=== PATIENT | male | born 1960 | race Asian ===

== ENCOUNTER 2016-02-25 11:33 | Inpatient (IN) | payer OTHER ==
[~2016-02-25] VITALS: Ht 157.5 cm; Wt 42.5 kg
[~2016-02-25 11:33] MED LIST: 00186-0370-20 IH; ADVIL200 MG PO; DIFLUCAN 100MG100 MG PO; DULERA1 AR1 IH; FOSAMAX 70MG TA70 MG PO; LEVAQUIN 5500 MG/TA1 PO; MUCINEX 60600 MG/TA1 PO; MULTI VITAMINS1 TAB PO; NORCO 325 MG-51 TAB PO; OMNICEF 300MG300 MG PO; OXYGEN; PEN-VEE K500 MG PO; PREDNISONE 5MG5 MG PO; PREDNISONE10 MG PO; PULMICORT0.5 MG/2 M IH; RT ADVAIR 528 DISKUS IH; SINGULAIR 110 MG/TAB PO; VENTOLIN0.09 MG IH; ZYRTEC 10MG10 MG PO
[2016-02-25] MEDS ORDERED: 00186-0370-20 IH (11:41)
[2016-02-25] MEDS ORDERED: ZYRTEC 10MG10 MG PO (12:10)
[2016-02-25] MEDS ORDERED: SINGULAIR 110 MG/TAB PO (12:11)
[2016-02-25] MEDS ORDERED: PREDNISONE 5MG5 MG PO (12:11)
[2016-02-25] MEDS ORDERED: PULMICORT0.5 MG/2 M IH (12:11)
[2016-02-25] MEDS ORDERED: ADVIL200 MG PO (12:11)
[2016-02-25] MEDS ORDERED: MULTI VITAMINS1 TAB PO (12:13)
[2016-02-25] MEDS ORDERED: DULERA1 ARO IH (12:13)
[2016-02-25 12:16] LABS: ARTERIAL BLD GAS O2 SATURATION 97.9 % (92-100); ARTERIAL BLD GAS TCO2 CT 33.1; ARTERIAL BLOOD GAS BASE EXCESS 4.6 (-2-2); ARTERIAL BLOOD GAS HCO3 31.4 meq/L (22-26); ARTERIAL BLOOD GAS PHT 7.36 C (7.35-7.45); ARTERIAL BLOOD GAS PO2 118.5 mmHg (80-100); ARTERIAL BLOOD GAS PO2T 118.5 (80-100); ARTERIAL BLOOD GAS pH 7.36 (7.35-7.45); OXYHEMOGLOBIN 97.2 %
[2016-02-25 12:17] LABS: ATS? YES
[2016-02-25 12:30] LABS: BASO # 0.1 (0.0-0.2); BASO % 1.1 % (0.0-2.0); EOS # 1.4 (0.0-0.7); EOS % 14.2 % (0-4.0); GRAN # 5.6 (1.4-6.5); HEMATOCRIT 39.4 % (42.0-52.0); HEMOGLOBIN 12.9 g/dl (13.5-18.0); LYMPH # 1.6 (1.2-3.4); LYMPH % 16.8 % (20.0-51.0); MEAN CELL VOLUME 97 fl (80.0-100.0); MEAN CORPUSCULAR HEMOGLOBIN 32 pg (27.0-31.0); MEAN CORPUSCULAR HGB CONC 33 g/dl (33.0-37.0); MONO # 0.9 (0.1-0.6); MONO % 9.7 % (1.7-9.3); PLATELET COUNT 414 K/mm3 (130-400); RED BLOOD COUNT 4.05 M/mm3 (4.20-5.60); REDCELL DISTRIBUTION WIDTH-CV 13.8 % (11.5-14.5); WHITE BLOOD COUNT 9.6 K/mm3 (4.8-10.8)
[2016-02-25 12:37] LABS: ALBUMIN 3.8 gm/dL (3.5-5.0); BILIRUBIN,TOTAL 0.7 mg/dL (0.0-1.0); CALCIUM 9.8 mg/dL (8.4-10.2); CREATININE, serum 0.68 mg/dL (0.66-1.25); TOTAL PROTEIN 7.7 gm/dL (6.4-8.2)
[2016-02-25 14:41] VITALS: BP 99/68; PULSE 80; TEMP 97.9
[2016-02-25 14:42] VITALS: BP 101/66; PULSE 79; TEMP 97.9
[2016-02-25 17:04] LABS: INFLUENZA B NEGATIVE
[2016-02-25] MEDS ORDERED: NYSTATIN OR100 MU/ML PO (19:46)
[2016-02-25 20:10] VITALS: BP 101/66; PULSE 98; TEMP 98.3
[2016-02-25 23:34] VITALS: BP 94/58; PULSE 97; TEMP 98.7
[2016-02-26 02:51] VITALS: BP 94/57; PULSE 97; TEMP 98.4
[2016-02-26 06:36] LABS: BASO % 0.5 % (0.0-2.0); GRAN # 4.3 (1.4-6.5); GRAN % 75.3 % (42.2-75.2); LYMPH % 17.3 % (20.0-51.0); MEAN CELL VOLUME 99 fl (80.0-100.0); MEAN CORPUSCULAR HGB CONC 32 g/dl (33.0-37.0); MEAN PLATELET VOLUME 9.1 fl (7.4-10.4); MONO # 0.4 (0.1-0.6); MONO % 6.7 % (1.7-9.3); PLATELET COUNT 367 K/mm3 (130-400); RED BLOOD COUNT 3.54 M/mm3 (4.20-5.60); REDCELL DISTRIBUTION WIDTH-CV 13.7 % (11.5-14.5); WHITE BLOOD COUNT 5.7 K/mm3 (4.8-10.8)
[2016-02-26 06:38] LABS: HEMATOCRIT 34.9 % (42.0-52.0); HEMOGLOBIN 11.2 g/dl (13.5-18.0); MEAN CORPUSCULAR HEMOGLOBIN 32 pg (27.0-31.0)
[2016-02-26 07:59] VITALS: BP 91/59; PULSE 77; TEMP 98.3
[2016-02-26 11:16] VITALS: BP 99/65; PULSE 83; TEMP 98.3
[2016-02-26 15:48] VITALS: BP 111/64; PULSE 100; TEMP 98.4
[2016-02-26 19:37] VITALS: BP 108/65; PULSE 102; TEMP 98
[2016-02-27] VITALS (7 sets, daily range): BP systolic 106–128; BP diastolic 59–83; PULSE 80–98; TEMP 97.2–98.7
[2016-02-28 03:26] VITALS: BP 121/76; PULSE 83; TEMP 98.6
[2016-02-28 07:33] VITALS: BP 114/77; PULSE 90; TEMP 98.5
[2016-02-28 12:37] VITALS: BP 125/89; PULSE 88; TEMP 97.9
[2016-02-28 16:07] VITALS: BP 131/79; PULSE 98; TEMP 98.5
[2016-02-28 20:18] VITALS: BP 133/89; PULSE 106; TEMP 98.5
[2016-02-28 22:54] VITALS: BP 123/83; PULSE 101; TEMP 98.6
[2016-02-29 03:02] VITALS: BP 129/83; PULSE 95; TEMP 98
[2016-02-29 07:30] LABS: BASO # 0.1 (0.0-0.2); BASO % 0.8 % (0.0-2.0); EOS % 0.5 % (0-4.0); GRAN % 63.6 % (42.2-75.2); LYMPH # 1.9 (1.2-3.4); LYMPH % 24.6 % (20.0-51.0); MEAN CELL VOLUME 96 fl (80.0-100.0); MEAN CORPUSCULAR HGB CONC 33 g/dl (33.0-37.0); MEAN PLATELET VOLUME 9.3 fl (7.4-10.4); MONO # 0.8 (0.1-0.6); PLATELET COUNT 405 K/mm3 (130-400); RED BLOOD COUNT 3.53 M/mm3 (4.20-5.60); WHITE BLOOD COUNT 7.8 K/mm3 (4.8-10.8)
[2016-02-29 07:34] LABS: HEMOGLOBIN 11.1 g/dl (13.5-18.0); MEAN CORPUSCULAR HEMOGLOBIN 31 pg (27.0-31.0)
[2016-02-29 07:40] LABS: ADJUSTED CALCIUM 9.6 mg/dL (8.4-10.2); ALBUMIN 2.9 gm/dL (3.5-5.0); BILIRUBIN,TOTAL 0.2 mg/dL (0.0-1.0); CALCIUM 8.7 mg/dL (8.4-10.2); CREATININE, serum 0.55 mg/dL (0.66-1.25); POTASSIUM 3.6 mmol/L (3.4-5.0); TOTAL PROTEIN 5.9 gm/dL (6.4-8.2)
[2016-02-29 08:03] VITALS: BP 112/80; PULSE 51; TEMP 98.3
[2016-02-29 10:50] VITALS: BP 129/87; PULSE 102
[2016-02-29] MEDS ORDERED: ETHAMBUTOL HYD400 MG PO (11:06)
[2016-02-29] MEDS ORDERED: RIFADIN300 MG PO (11:06)
[2016-02-29] MEDS ORDERED: BIAXIN 500MG T500 MG PO (11:07)
[2016-02-29] MEDS ORDERED: PREDNISONE10 MG PO (11:09)
[2016-02-29 11:42] VITALS: BP 130/82; PULSE 97; TEMP 97.5
== END 2016-02-29 14:10 | disposition home or self-care (01) | DRG 163 ==
LOC: COL.ER 11:33 → MEDICAL 13:41
PROVIDERS: Emergency Medicine; Internal Medicine; Internal Medicine Pulmonary Disease; Nurse Practitioner Family
PROC: 0B9B8ZZ Drainage of Left Lower Lobe Bronchus, Via Natural or Artificial Opening Endoscopic (ICD-10-PCS; principal; 2016-02-25)
PROC: 0B968ZZ Drainage of Right Lower Lobe Bronchus, Via Natural or Artificial Opening Endoscopic (ICD-10-PCS; 2016-02-25)
DX: J44.1 Chronic obstructive pulmonary disease with (acute) exacerbation (principal); J18.9 Pneumonia, unspecified organism; A31.0 Pulmonary mycobacterial infection; J45.909 Unspecified asthma, uncomplicated; D72.1 Eosinophilia; Z87.891 Personal history of nicotine dependence; Z91.14 Patient's other noncompliance with medication regimen
CPT/HCPCS: 99222-AI; 99232-AI; 99239; J0696; J1650; J2704; J7030; J7512

== ENCOUNTER 2016-05-22 00:23 | Inpatient (IN) | payer OTHER ==
[2016-05-22] VITALS (739 sets, daily range): BP systolic 84–127; BP diastolic 60–87; PULSE 77–122; TEMP 97–99.2; O2SAT 92–100
[~2016-05-22] VITALS: Ht 154.9 cm; Wt 41.8 kg
[~2016-05-22 00:23] MED LIST changes: +BIAXIN 500MG T500 MG PO; +DULERA1 ARO IH; +ETHAMBUTOL HYD400 MG PO; +NYSTATIN OR100 MU/ML PO; +RIFADIN300 MG PO
[2016-05-22 00:59] LABS: BASO # 0.1 (0.0-0.2); BASO % 1.4 % (0.0-2.0); EOS # 1.4 (0.0-0.7); EOS % 15.1 % (0-4.0); GRAN # 5.1 (1.4-6.5); GRAN % 55.9 % (42.2-75.2); HEMATOCRIT 41.5 % (42.0-52.0); HEMOGLOBIN 13.5 g/dl (13.5-18.0); LYMPH # 1.6 (1.2-3.4); LYMPH % 17.4 % (20.0-51.0); MEAN CELL VOLUME 97 fl (80.0-100.0); MEAN CORPUSCULAR HEMOGLOBIN 32 pg (27.0-31.0); MEAN CORPUSCULAR HGB CONC 33 g/dl (33.0-37.0); MEAN PLATELET VOLUME 9.6 fl (7.4-10.4); MONO # 0.9 (0.1-0.6); PLATELET COUNT 291 K/mm3 (130-400); RED BLOOD COUNT 4.27 M/mm3 (4.20-5.60); REDCELL DISTRIBUTION WIDTH-CV 13.2 % (11.5-14.5); WHITE BLOOD COUNT 9.1 K/mm3 (4.8-10.8)
[2016-05-22 01:10] LABS: VENOUS BLOOD GAS BE 10.4 (-4-4); VENOUS BLOOD GAS SAO2 79.3 % (60-80); VENOUS BLOOD GAS SITE VENIPUNCTURE
[2016-05-22 01:15] LABS: ADJUSTED CALCIUM 9.4 mg/dL (8.4-10.2); ALANINE AMINOTRANSFERASE 25 U/L (21-72); ALKALINE PHOSPHATASE 104 U/L (50-136); ANION GAP 13 mmol/L (7-16); BILIRUBIN,TOTAL 0.6 mg/dL (0.0-1.0); BLOOD UREA NITROGEN 25 mg/dL (9-20); CALCIUM 9.4 mg/dL (8.4-10.2); CARBON DIOXIDE 34 mmol/L (22-30); CHLORIDE 95 mmol/L (98-107); CREATININE, serum 0.82 mg/dL (0.66-1.25); GLUCOSE 126 mg/dL (74-106); LIPASE 240 U/L (23-300); POTASSIUM 4.3 mmol/L (3.4-5.0); SODIUM 142 mmol/L (137-145); TOTAL PROTEIN 7.9 gm/dL (6.4-8.2)
[2016-05-22 01:16] LABS: INR 1.1 (0.8-3.0); PROTHROMBIN TIME 12.3 SECONDS (9.7-12.8)
[2016-05-22 01:27] LABS: B-TYPE NATRIURETIC PEPTIDE 64 pg/mL (0-125); TROPONIN-I < 0.012 ng/mL (0.000-0.034)
[2016-05-22] MEDS ORDERED: FOSAMAX 70MG TA70 MG PO (03:13)
[2016-05-22] MEDS ORDERED: SINGULAIR 110 MG/TAB PO (03:20)
[2016-05-22] MEDS ORDERED: ETHAMBUTOL HYD400 MG PO (03:21)
[2016-05-22] MEDS ORDERED: BIAXIN 500MG T500 MG PO (03:22)
[2016-05-22] MEDS ORDERED: RIFADIN300 MG PO (03:24)
[2016-05-22] MEDS ORDERED: TYLENOL 500MG500 MG PO (03:27)
[2016-05-22] MEDS ORDERED: PULMICORT0.5 MG/2 M IH (03:27)
[2016-05-22] MEDS ORDERED: PROAIR HFA0.09 MG/AC IH (03:28)
[2016-05-22 05:53] LABS: ARTERIAL BLD GAS O2 SATURATION 92.8 % (92-100); ARTERIAL BLD GAS TCO2 CT 35.8; ARTERIAL BLOOD GAS BASE EXCESS 4.1 (-2-2); ARTERIAL BLOOD GAS HCO3 33.5 meq/L (22-26); ARTERIAL BLOOD GAS PHT 7.26 C (7.35-7.45); ARTERIAL BLOOD GAS PO2 72.7 mmHg (80-100); ARTERIAL BLOOD GAS PO2T 72.7 (80-100); ARTERIAL BLOOD GAS pH 7.26 (7.35-7.45)
[2016-05-22 05:57] LABS: ALLEN TEST YES; ALLENS TEST RESULT PASS; ATS? YES
[2016-05-22 06:14] LABS: CALCIUM 8.9 mg/dL (8.4-10.2); CREATININE, serum 0.73 mg/dL (0.66-1.25); MAGNESIUM 2.5 mg/dL (1.6-2.3); POTASSIUM 4.2 mmol/L (3.4-5.0)
[2016-05-22 11:58] LABS: ARTERIAL BLD GAS O2 SATURATION 97.8 % (92-100); ARTERIAL BLD GAS TCO2 CT 32.9; ARTERIAL BLOOD GAS BASE EXCESS 4.6 (-2-2); ARTERIAL BLOOD GAS HCO3 31.2 meq/L (22-26); ARTERIAL BLOOD GAS PHT 7.37 C (7.35-7.45); ARTERIAL BLOOD GAS pH 7.37 (7.35-7.45); OXYHEMOGLOBIN 96.9 %
[2016-05-22 12:00] LABS: ABG VENTILATOR TIDAL VOLUME 450 mL; ALLEN TEST YES; ALLENS TEST RESULT PASS; ARTERIAL BLOOD GAS PO2 122.6 mmHg (80-100); ARTERIAL BLOOD GAS PO2T 122.6 (80-100); ATS? YES
[2016-05-22 20:45] LABS: INFLUENZA B NEGATIVE
[2016-05-23] VITALS (1335 sets, daily range): BP systolic 90–125; BP diastolic 65–95; PULSE 60–114; TEMP 97–98.2; O2SAT 67–100
[2016-05-23 04:23] LABS: ARTERIAL BLD GAS TCO2 CT 28.6; ARTERIAL BLOOD GAS BASE EXCESS 2.2 (-2-2); ARTERIAL BLOOD GAS HCO3 27.3 meq/L (22-26); ARTERIAL BLOOD GAS PO2 89.4 mmHg (80-100); ARTERIAL BLOOD GAS PO2T 89.4 (80-100); OXYHEMOGLOBIN 95.1 %
[2016-05-23 04:24] LABS: ALLEN TEST YES; ALLENS TEST RESULT PASS; ATS? YES
[2016-05-23 06:04] LABS: BASO # 0.1 (0.0-0.2); BASO % 0.6 % (0.0-2.0); EOS % 0.2 % (0-4.0); GRAN # 7.5 (1.4-6.5); GRAN % 81.1 % (42.2-75.2); LYMPH # 1.3 (1.2-3.4); LYMPH % 13.4 % (20.0-51.0); MEAN CELL VOLUME 98 fl (80.0-100.0); MEAN CORPUSCULAR HGB CONC 32 g/dl (33.0-37.0); MEAN PLATELET VOLUME 9.8 fl (7.4-10.4); MONO # 0.4 (0.1-0.6); MONO % 4.4 % (1.7-9.3); PLATELET COUNT 230 K/mm3 (130-400); RED BLOOD COUNT 3.65 M/mm3 (4.20-5.60); REDCELL DISTRIBUTION WIDTH-CV 13.3 % (11.5-14.5); WHITE BLOOD COUNT 9.3 K/mm3 (4.8-10.8)
[2016-05-23 06:06] LABS: HEMATOCRIT 35.8 % (42.0-52.0); HEMOGLOBIN 11.5 g/dl (13.5-18.0); MEAN CORPUSCULAR HEMOGLOBIN 32 pg (27.0-31.0)
[2016-05-23 06:15] LABS: ADJUSTED CALCIUM 8.8 mg/dL (8.4-10.2); BILIRUBIN,TOTAL 0.4 mg/dL (0.0-1.0); CREATININE, serum 0.67 mg/dL (0.66-1.25); MAGNESIUM 2.1 mg/dL (1.6-2.3); PHOSPHOROUS 2.7 mg/dL (2.5-4.5); POTASSIUM 3.7 mmol/L (3.4-5.0); TOTAL PROTEIN 6.3 gm/dL (6.4-8.2)
[2016-05-24] VITALS (1172 sets, daily range): BP systolic 97–124; BP diastolic 78–84; PULSE 74–94; TEMP 97–98.6; O2SAT 71–100
[2016-05-24 04:40] LABS: ARTERIAL BLD GAS O2 SATURATION 95.4 % (92-100); ARTERIAL BLD GAS TCO2 CT 31.2; ARTERIAL BLOOD GAS BASE EXCESS 3.7 (-2-2); ARTERIAL BLOOD GAS HCO3 29.6 meq/L (22-26); ARTERIAL BLOOD GAS PHT 7.39 C (7.35-7.45); ARTERIAL BLOOD GAS PO2 83.1 mmHg (80-100); ARTERIAL BLOOD GAS PO2T 83.1 (80-100); ARTERIAL BLOOD GAS pH 7.39 (7.35-7.45); OXYHEMOGLOBIN 94.6 %
[2016-05-24 04:42] LABS: ALLEN TEST YES; ALLENS TEST RESULT PASS; ATS? YES
[2016-05-24 05:39] LABS: ADJUSTED CALCIUM 8.5 mg/dL (8.4-10.2); ALBUMIN 2.3 gm/dL (3.5-5.0); BILIRUBIN,TOTAL 0.3 mg/dL (0.0-1.0); CALCIUM 7.1 mg/dL (8.4-10.2); CREATININE, serum 0.51 mg/dL (0.66-1.25); MAGNESIUM 1.8 mg/dL (1.6-2.3); PHOSPHOROUS 1.9 mg/dL (2.5-4.5); POTASSIUM 3.1 mmol/L (3.4-5.0)
[2016-05-24 05:44] LABS: BASO # 0.1 (0.0-0.2); BASO % 0.9 % (0.0-2.0); EOS # 0.2 (0.0-0.7); EOS % 2.3 % (0-4.0); GRAN # 5.3 (1.4-6.5); GRAN % 68.3 % (42.2-75.2); LYMPH # 1.6 (1.2-3.4); LYMPH % 20.9 % (20.0-51.0); MEAN CELL VOLUME 97 fl (80.0-100.0); MEAN CORPUSCULAR HGB CONC 33 g/dl (33.0-37.0); MEAN PLATELET VOLUME 10.1 fl (7.4-10.4); MONO # 0.6 (0.1-0.6); MONO % 7.3 % (1.7-9.3); PLATELET COUNT 183 K/mm3 (130-400); REDCELL DISTRIBUTION WIDTH-CV 13.4 % (11.5-14.5); WHITE BLOOD COUNT 7.7 K/mm3 (4.8-10.8)
[2016-05-24 06:10] LABS: HEMATOCRIT 29.9 % (42.0-52.0); HEMOGLOBIN 9.9 g/dl (13.5-18.0); MEAN CORPUSCULAR HEMOGLOBIN 32 pg (27.0-31.0)
[2016-05-25] VITALS (1058 sets, daily range): BP systolic 104–112; BP diastolic 67–82; PULSE 66–94; TEMP 97–99.3; O2SAT 87–100
[2016-05-25 05:03] LABS: ALLEN TEST YES; ALLENS TEST RESULT PASS; ARTERIAL BLD GAS O2 SATURATION 93.6 % (92-100); ARTERIAL BLD GAS TCO2 CT 32.6; ARTERIAL BLOOD GAS BASE EXCESS 6.1 (-2-2); ARTERIAL BLOOD GAS HCO3 31.1 meq/L (22-26); ARTERIAL BLOOD GAS PHT 7.44 C (7.35-7.45); ARTERIAL BLOOD GAS PO2 70.2 mmHg (80-100); ARTERIAL BLOOD GAS PO2T 70.2 (80-100); ARTERIAL BLOOD GAS pH 7.44 (7.35-7.45); ATS? YES; OXYHEMOGLOBIN 92.9 %
[2016-05-25 05:28] LABS: BASO # 0.1 (0.0-0.2); BASO % 0.8 % (0.0-2.0); EOS # 0.2 (0.0-0.7); EOS % 2.8 % (0-4.0); GRAN # 4.5 (1.4-6.5); GRAN % 59.2 % (42.2-75.2); LYMPH % 27.2 % (20.0-51.0); MEAN CELL VOLUME 94 fl (80.0-100.0); MEAN CORPUSCULAR HGB CONC 33 g/dl (33.0-37.0); MONO # 0.7 (0.1-0.6); MONO % 9.9 % (1.7-9.3); PLATELET COUNT 206 K/mm3 (130-400); RED BLOOD COUNT 3.53 M/mm3 (4.20-5.60); REDCELL DISTRIBUTION WIDTH-CV 13.5 % (11.5-14.5); WHITE BLOOD COUNT 7.5 K/mm3 (4.8-10.8)
[2016-05-25 05:30] LABS: HEMATOCRIT 33.3 % (42.0-52.0); HEMOGLOBIN 11.1 g/dl (13.5-18.0); MEAN CORPUSCULAR HEMOGLOBIN 31 pg (27.0-31.0)
[2016-05-25 05:35] LABS: ADJUSTED CALCIUM 9.1 mg/dL (8.4-10.2); ALBUMIN 2.7 gm/dL (3.5-5.0); BILIRUBIN,TOTAL 0.4 mg/dL (0.0-1.0); CALCIUM 8.1 mg/dL (8.4-10.2); CREATININE, serum 0.61 mg/dL (0.66-1.25); MAGNESIUM 2.3 mg/dL (1.6-2.3); PHOSPHOROUS 2.9 mg/dL (2.5-4.5); POTASSIUM 3.6 mmol/L (3.4-5.0); TOTAL PROTEIN 5.7 gm/dL (6.4-8.2)
[2016-05-25 15:59] LABS: ARTERIAL BLD GAS O2 SATURATION 96.4 % (92-100); ARTERIAL BLOOD GAS HCO3 30.6 meq/L (22-26); ARTERIAL BLOOD GAS PHT 7.46 C (7.35-7.45); ARTERIAL BLOOD GAS PO2 89.9 mmHg (80-100); ARTERIAL BLOOD GAS PO2T 89.9 (80-100); ARTERIAL BLOOD GAS pH 7.46 (7.35-7.45); OXYHEMOGLOBIN 95.4 %
[2016-05-25 16:00] LABS: ALLEN TEST YES; ALLENS TEST RESULT PASS; ATS? YES
[2016-05-26] VITALS (671 sets, daily range): BP systolic 101–120; BP diastolic 60–83; PULSE 84–100; TEMP 97.6–99.2; O2SAT 56–100
[2016-05-26 05:58] LABS: BASO % 0.6 % (0.0-2.0); EOS # 0.1 (0.0-0.7); EOS % 1.2 % (0-4.0); GRAN # 5.2 (1.4-6.5); GRAN % 78.6 % (42.2-75.2); LYMPH # 0.9 (1.2-3.4); LYMPH % 13.8 % (20.0-51.0); MEAN CELL VOLUME 93 fl (80.0-100.0); MEAN CORPUSCULAR HGB CONC 34 g/dl (33.0-37.0); MEAN PLATELET VOLUME 9.7 fl (7.4-10.4); MONO # 0.4 (0.1-0.6); MONO % 5.5 % (1.7-9.3); PLATELET COUNT 211 K/mm3 (130-400); REDCELL DISTRIBUTION WIDTH-CV 13.4 % (11.5-14.5); WHITE BLOOD COUNT 6.7 K/mm3 (4.8-10.8)
[2016-05-26 06:06] LABS: HEMATOCRIT 29.9 % (42.0-52.0); HEMOGLOBIN 10.2 g/dl (13.5-18.0); MEAN CORPUSCULAR HEMOGLOBIN 32 pg (27.0-31.0)
[2016-05-26 06:14] LABS: CALCIUM 8.6 mg/dL (8.4-10.2); CREATININE, serum 0.66 mg/dL (0.66-1.25); POTASSIUM 3.4 mmol/L (3.4-5.0)
[2016-05-27 00:05] VITALS: BP 140/88; PULSE 107; TEMP 98.3
[2016-05-27 04:29] VITALS: BP 117/75; PULSE 88; TEMP 98.9
[2016-05-27 08:00] VITALS: BP 118/78; PULSE 97; TEMP 97.8
[2016-05-27] MEDS ORDERED: ETHAMBUTOL HYD400 MG PO (12:02)
[2016-05-27] MEDS ORDERED: BIAXIN 500MG T500 MG PO (12:03)
[2016-05-27] MEDS ORDERED: RIFADIN300 MG PO (12:04)
[2016-05-27] MEDS ORDERED: PREDNISONE10 MG PO (12:07)
[2016-05-27 12:15] VITALS: BP 130/80; PULSE 93; TEMP 98.2
== END 2016-05-27 17:28 | disposition home or self-care (01) | DRG 163 ==
LOC: COL.ER 00:23 → IMCU 01:40 → ICU 01:40 → MEDICAL 05-26 16:30
PROVIDERS: Emergency Medicine; Internal Medicine; Internal Medicine Pulmonary Disease
PROC: 0BH17EZ Insertion of Endotracheal Airway into Trachea, Via Natural or Artificial Opening (ICD-10-PCS; principal; 2016-05-22)
PROC: 0B968ZZ Drainage of Right Lower Lobe Bronchus, Via Natural or Artificial Opening Endoscopic (ICD-10-PCS; 2016-05-22)
PROC: 0B9B8ZZ Drainage of Left Lower Lobe Bronchus, Via Natural or Artificial Opening Endoscopic (ICD-10-PCS; 2016-05-22)
PROC: 5A1945Z Respiratory Ventilation, 24-96 Consecutive Hours (ICD-10-PCS; 2016-05-22)
PROC: 0B968ZZ Drainage of Right Lower Lobe Bronchus, Via Natural or Artificial Opening Endoscopic (ICD-10-PCS; 2016-05-24)
PROC: 0B9B8ZZ Drainage of Left Lower Lobe Bronchus, Via Natural or Artificial Opening Endoscopic (ICD-10-PCS; 2016-05-24)
DX: J96.02 Acute respiratory failure with hypercapnia (principal); E43 Unspecified severe protein-calorie malnutrition; J44.1 Chronic obstructive pulmonary disease with (acute) exacerbation; J45.901 Unspecified asthma with (acute) exacerbation; Z68.1 Body mass index [BMI] 19.9 or less, adult; Z87.891 Personal history of nicotine dependence; E87.6 Hypokalemia; E83.39 Other disorders of phosphorus metabolism
CPT/HCPCS: 99223-AI; 99232-AI; 99233-AI; 99239; A4315; C1751; J0330; J0610; J1644; J1650; J2250; J2543; J2704; J2920; J2930; J3010; J3370; J3475; J3480; J7030; J7040; J7050

== ENCOUNTER 2016-08-18 15:07 | Emergency (ER) | payer OTHER ==
[~2016-08-18] VITALS: Ht 154.9 cm; Wt 54.5 kg
[~2016-08-18 15:07] MED LIST changes: +PROAIR HFA0.09 MG/AC IH; +TYLENOL 500MG500 MG PO
[2016-08-18 15:12] VITALS: TEMP 98.1
[2016-08-18] MEDS ORDERED: 00186-0370-20 IH (15:58)
[2016-08-18 16:08] LABS: VENOUS BLOOD GAS BE 2.7 (-4-4)
[2016-08-18 16:09] LABS: VENOUS BLOOD GAS SITE VENIPUNCTURE
[2016-08-18 16:20] LABS: BASO # 0.1 (0.0-0.2); BASO % 1.4 % (0.0-2.0); EOS # 1.3 (0.0-0.7); EOS % 14.9 % (0-4.0); GRAN # 4.5 (1.4-6.5); GRAN % 53.4 % (42.2-75.2); HEMATOCRIT 45.4 % (42.0-52.0); HEMOGLOBIN 15.5 g/dl (13.5-18.0); LYMPH # 1.6 (1.2-3.4); LYMPH % 19.1 % (20.0-51.0); MEAN CELL VOLUME 99 fl (80.0-100.0); MEAN CORPUSCULAR HEMOGLOBIN 34 pg (27.0-31.0); MEAN CORPUSCULAR HGB CONC 34 g/dl (33.0-37.0); MEAN PLATELET VOLUME 9.5 fl (7.4-10.4); MONO # 0.9 (0.1-0.6); PLATELET COUNT 282 K/mm3 (130-400); REDCELL DISTRIBUTION WIDTH-CV 13.1 % (11.5-14.5); WHITE BLOOD COUNT 8.4 K/mm3 (4.8-10.8)
[2016-08-18 16:38] LABS: ANION GAP 10 mmol/L (7-16); BLOOD UREA NITROGEN 22 mg/dL (9-20); CALCIUM 9.2 mg/dL (8.4-10.2); CARBON DIOXIDE 28 mmol/L (22-30); CHLORIDE 103 mmol/L (98-107); CREATININE, serum 0.88 mg/dL (0.66-1.25); GLUCOSE 62 mg/dL (74-106); POTASSIUM 4.1 mmol/L (3.4-5.0); SODIUM 140 mmol/L (137-145)
[2016-08-18 16:44] LABS: HYALINE CAST >12 /lpf; PH 5 (5-8); SQUAMOUS EPITHELIAL None Seen /hpf; URINE APPEARANCE Clear; URINE BACTERIA None Seen /hpf; URINE BILIRUBIN Negative (NEGATIVE); URINE BLOOD Negative (NEGATIVE); URINE COLOR Amber; URINE GLUCOSE Negative (NEGATIVE); URINE KETONE Negative (NEGATIVE); URINE RBC 0-2 /hpf; URINE UROBILINOGEN Negative (NEGATIVE); URINE WBC 0-2 /hpf
[2016-08-18 16:50] LABS: B-TYPE NATRIURETIC PEPTIDE 57 pg/mL (0-125); TROPONIN-I < 0.012 ng/mL (0.000-0.034)
[2016-08-18] MEDS ORDERED: ATROVENT INHALE14 GM IH (17:08)
[2016-08-18] MEDS ORDERED: PREDNISONE20 MG PO (17:08)
[2016-08-18] MEDS ORDERED: LEVAQUIN 750MG750 M1 PO (17:09)
[2016-08-18 17:21] VITALS: BP 115/81; PULSE 96
== END 2016-08-18 17:30 | disposition home or self-care (01) ==
LOC: COL.ER 15:07
PROVIDERS: Emergency Medicine
DX: J44.0 Chronic obstructive pulmonary disease with (acute) lower respiratory infection (principal); J20.9 Acute bronchitis, unspecified; J44.1 Chronic obstructive pulmonary disease with (acute) exacerbation; Z87.891 Personal history of nicotine dependence; Z99.81 Dependence on supplemental oxygen
CPT/HCPCS: J2930; J7030

== ENCOUNTER 2017-01-20 16:17 | Emergency (ER) | payer OTHER ==
[~2017-01-20] VITALS: Ht 134.6 cm; Wt 44.5 kg
[~2017-01-20 16:17] MED LIST changes: +ATROVENT INHALE14 GM IH; +LEVAQUIN 750MG750 M1 PO; +PREDNISONE20 MG PO
[2017-01-20 16:27] VITALS: TEMP 98.7
[2017-01-20 16:58] LABS: BASO # 0.1 (0.0-0.2); BASO % 1.4 % (0.0-2.0); EOS # 0.7 (0.0-0.7); EOS % 10.5 % (0-4.0); GRAN # 3.4 (1.4-6.5); GRAN % 52.8 % (42.2-75.2); HEMATOCRIT 42.9 % (42.0-52.0); HEMOGLOBIN 14.7 g/dl (13.5-18.0); LYMPH # 1.7 (1.2-3.4); LYMPH % 25.6 % (20.0-51.0); MEAN CELL VOLUME 98 fl (80.0-100.0); MEAN CORPUSCULAR HEMOGLOBIN 33 pg (27.0-31.0); MEAN CORPUSCULAR HGB CONC 34 g/dl (33.0-37.0); MEAN PLATELET VOLUME 9.4 fl (7.4-10.4); MONO # 0.6 (0.1-0.6); MONO % 9.5 % (1.7-9.3); PLATELET COUNT 265 K/mm3 (130-400); WHITE BLOOD COUNT 6.5 K/mm3 (4.8-10.8)
[2017-01-20] MEDS ORDERED: 00186-0370-20 IH (16:59)
[2017-01-20] MEDS ORDERED: REMERON 15M15 MG/TA1 PO (16:59)
[2017-01-20] MEDS ORDERED: BREO IH (16:59)
[2017-01-20] MEDS ORDERED: SPIRIVA RE2.5 MCG/Ac IH (16:59)
[2017-01-20 17:02] LABS: PROTHROMBIN TIME 11.4 SECONDS (9.7-12.8)
[2017-01-20 17:05] LABS: PARTIAL THROMBOPLASTIN TIME 38.5 SECONDS (26.0-37.0)
[2017-01-20 17:08] LABS: ADJUSTED CALCIUM 9.2 mg/dL (8.4-10.2); ALANINE AMINOTRANSFERASE 45 U/L (21-72); ALBUMIN 4.5 gm/dL (3.5-5.0); ALKALINE PHOSPHATASE 79 U/L (50-136); ANION GAP 7 mmol/L (7-16); BILIRUBIN,TOTAL 0.5 mg/dL (0.0-1.0); BLOOD UREA NITROGEN 19 mg/dL (9-20); CALCIUM 9.6 mg/dL (8.4-10.2); CARBON DIOXIDE 27 mmol/L (22-30); CHLORIDE 105 mmol/L (98-107); CREATININE, serum 0.75 mg/dL (0.66-1.25); GLUCOSE 103 mg/dL (74-106); POTASSIUM 4.3 mmol/L (3.4-5.0); SODIUM 139 mmol/L (137-145); TOTAL PROTEIN 7.7 gm/dL (6.4-8.2)
[2017-01-20 17:19] LABS: B-TYPE NATRIURETIC PEPTIDE 63 pg/mL (0-125); TROPONIN-I < 0.012 ng/mL (0.000-0.034)
[2017-01-20] MEDS ORDERED: PREDNISONE20 MG PO (18:58)
[2017-01-20] MEDS ORDERED: ZITHROMAX500 M2 PO (18:58)
[2017-01-20 19:20] VITALS: BP 138/97; PULSE 100
== END 2017-01-20 19:21 | disposition home or self-care (01) ==
LOC: COL.ER 16:17
PROVIDERS: Emergency Medicine
DX: J45.901 Unspecified asthma with (acute) exacerbation (principal); J44.9 Chronic obstructive pulmonary disease, unspecified; Z87.891 Personal history of nicotine dependence
CPT/HCPCS: J0696; J2930; J3105; J3475; J7030

== ENCOUNTER 2017-02-16 18:51 | Emergency (ER) | payer OTHER ==
[~2017-02-16] VITALS: Ht 154.9 cm; Wt 44.1 kg
[~2017-02-16 18:51] MED LIST changes: +BREO IH; +REMERON 15M15 MG/TA1 PO; +SPIRIVA RE2.5 MCG/Ac IH; +ZITHROMAX500 M2 PO
[2017-02-16 18:58] VITALS: BP 122/69; TEMP 98.9
[2017-02-16 20:50] VITALS: PULSE 90
== END 2017-02-16 20:50 | disposition home or self-care (01) ==
LOC: COL.ER 18:51
DX: S90.121A Contusion of right lesser toe(s) without damage to nail, initial encounter (principal); J44.9 Chronic obstructive pulmonary disease, unspecified; Z87.891 Personal history of nicotine dependence; W22.8XXA Striking against or struck by other objects, initial encounter; Y92.009 Unspecified place in unspecified non-institutional (private) residence as the place of occurrence of the external cause

== ENCOUNTER 2017-03-01 17:39 | Inpatient (IN) | payer OTHER ==
[~2017-03-01] VITALS: Ht 149.9 cm; Wt 44.1 kg
[2017-03-01 18:18] LABS: BASO # 0.2 (0.0-0.2); BASO % 2.3 % (0.0-2.0); EOS # 0.9 (0.0-0.7); EOS % 11.7 % (0-4.0); GRAN # 3.7 (1.4-6.5); GRAN % 50.6 % (42.2-75.2); HEMOGLOBIN 14.4 g/dl (13.5-18.0); LYMPH # 1.8 (1.2-3.4); LYMPH % 24.7 % (20.0-51.0); MEAN CELL VOLUME 99 fl (80.0-100.0); MEAN CORPUSCULAR HEMOGLOBIN 34 pg (27.0-31.0); MEAN CORPUSCULAR HGB CONC 34 g/dl (33.0-37.0); MEAN PLATELET VOLUME 9.1 fl (7.4-10.4); MONO # 0.8 (0.1-0.6); MONO % 10.4 % (1.7-9.3); PLATELET COUNT 377 K/mm3 (130-400); RED BLOOD COUNT 4.24 M/mm3 (4.20-5.60); REDCELL DISTRIBUTION WIDTH-CV 12.8 % (11.5-14.5)
[2017-03-01 18:23] LABS: CALCIUM 9.8 mg/dL (8.4-10.2); CREATININE, serum 0.83 mg/dL (0.66-1.25); POTASSIUM 4.3 mmol/L (3.4-5.0)
[2017-03-01 20:40] LABS: ARTERIAL BLD GAS O2 SATURATION 91.9 % (92-100); ARTERIAL BLD GAS TCO2 CT 26.8; ARTERIAL BLOOD GAS BASE EXCESS 0.2 (-2-2); ARTERIAL BLOOD GAS HCO3 25.4 meq/L (22-26); ARTERIAL BLOOD GAS PCO2 43.5 mmHg (35-45); ARTERIAL BLOOD GAS PO2 61.1 mmHg (80-100); ARTERIAL BLOOD GAS pH 7.39 (7.35-7.45)
[2017-03-01 23:52] VITALS: BP 109/67; PULSE 108; TEMP 98.6
[2017-03-02 05:07] VITALS: BP 100/67; PULSE 101; TEMP 98.6
[2017-03-02 06:39] LABS: BASO # 0.1 (0.0-0.2); BASO % 0.8 % (0.0-2.0); EOS % 0.2 % (0-4.0); GRAN # 4.9 (1.4-6.5); GRAN % 81.5 % (42.2-75.2); HEMATOCRIT 40.9 % (42.0-52.0); HEMOGLOBIN 13.9 g/dl (13.5-18.0); LYMPH # 0.9 (1.2-3.4); LYMPH % 14.2 % (20.0-51.0); MEAN CELL VOLUME 99 fl (80.0-100.0); MEAN CORPUSCULAR HEMOGLOBIN 34 pg (27.0-31.0); MEAN CORPUSCULAR HGB CONC 34 g/dl (33.0-37.0); MEAN PLATELET VOLUME 9.2 fl (7.4-10.4); MONO # 0.2 (0.1-0.6); PLATELET COUNT 373 K/mm3 (130-400); RED BLOOD COUNT 4.12 M/mm3 (4.20-5.60)
[2017-03-02 06:56] LABS: CREATININE, serum 0.93 mg/dL (0.66-1.25); MAGNESIUM 2.2 mg/dL (1.6-2.3); PHOSPHOROUS 2.6 mg/dL (2.5-4.5); POTASSIUM 4.8 mmol/L (3.4-5.0)
[2017-03-02 09:03] VITALS: BP 109/70; PULSE 103; TEMP 98.5
[2017-03-02 12:37] VITALS: BP 120/72; PULSE 112; TEMP 98
[2017-03-02] MEDS ORDERED: BIAXIN 500MG T500 MG PO (15:41)
[2017-03-02 16:31] VITALS: BP 105/78; PULSE 113; TEMP 98.3
[2017-03-02 19:17] VITALS: BP 117/74; PULSE 99; TEMP 98.9
[2017-03-02 23:16] VITALS: BP 104/69; PULSE 105; TEMP 98.3
[2017-03-03 05:31] VITALS: BP 102/68; PULSE 94; TEMP 98.1
[2017-03-03 07:28] LABS: BASO % 0.5 % (0.0-2.0); EOS % 0.2 % (0-4.0); GRAN # 7.2 (1.4-6.5); GRAN % 87.2 % (42.2-75.2); HEMATOCRIT 41.1 % (42.0-52.0); HEMOGLOBIN 13.7 g/dl (13.5-18.0); LYMPH # 0.8 (1.2-3.4); LYMPH % 9.1 % (20.0-51.0); MEAN CELL VOLUME 100 fl (80.0-100.0); MEAN CORPUSCULAR HEMOGLOBIN 33 pg (27.0-31.0); MEAN CORPUSCULAR HGB CONC 33 g/dl (33.0-37.0); MEAN PLATELET VOLUME 9.3 fl (7.4-10.4); MONO # 0.2 (0.1-0.6); MONO % 2.6 % (1.7-9.3); PLATELET COUNT 348 K/mm3 (130-400); RED BLOOD COUNT 4.11 M/mm3 (4.20-5.60); REDCELL DISTRIBUTION WIDTH-CV 13.1 % (11.5-14.5)
[2017-03-03 07:47] LABS: CALCIUM 9.8 mg/dL (8.4-10.2); CREATININE, serum 0.85 mg/dL (0.66-1.25); POTASSIUM 4.7 mmol/L (3.4-5.0)
[2017-03-03 08:50] VITALS: BP 124/75; PULSE 108; TEMP 97.8
[2017-03-03] MEDS ORDERED: PREDNISONE20 MG PO (12:14)
[2017-03-03] MEDS ORDERED: LEVAQUIN 5500 MG/TA1 PO (12:15)
[2017-03-03 12:29] VITALS: BP 117/72; PULSE 106; TEMP 98.6
== END 2017-03-03 15:26 | disposition home or self-care (01) | DRG 190 ==
LOC: COL.ER 17:39 → MEDICAL 20:13
PROVIDERS: Emergency Medicine; Internal Medicine; Physician Assistant
DX: J44.1 Chronic obstructive pulmonary disease with (acute) exacerbation (principal); J96.21 Acute and chronic respiratory failure with hypoxia; R65.11 Systemic inflammatory response syndrome (SIRS) of non-infectious origin with acute organ dysfunction; E43 Unspecified severe protein-calorie malnutrition; R64 Cachexia; Z68.1 Body mass index [BMI] 19.9 or less, adult; Z87.820 Personal history of traumatic brain injury; Z87.891 Personal history of nicotine dependence
CPT/HCPCS: 99232-AI; 99239; G0378; J1956; J2920; J2930

== ENCOUNTER 2017-03-31 15:44 | Inpatient (IN) | payer OTHER ==
[~2017-03-31] VITALS: Ht 154.9 cm; Wt 44.5 kg
[2017-03-31] VITALS (188 sets, daily range): BP systolic 127; BP diastolic 91; PULSE 88–111; TEMP 98; O2SAT 97–100
[2017-03-31 16:19] LABS: BASO # 0.1 (0.0-0.2); BASO % 1.3 % (0.0-2.0); EOS # 0.3 (0.0-0.7); EOS % 3.8 % (0-4.0); GRAN # 5.4 (1.4-6.5); GRAN % 62.8 % (42.2-75.2); HEMATOCRIT 44.1 % (42.0-52.0); HEMOGLOBIN 14.9 g/dl (13.5-18.0); LYMPH # 1.9 (1.2-3.4); LYMPH % 21.5 % (20.0-51.0); MEAN CELL VOLUME 101 fl (80.0-100.0); MEAN CORPUSCULAR HEMOGLOBIN 34 pg (27.0-31.0); MEAN CORPUSCULAR HGB CONC 34 g/dl (33.0-37.0); MEAN PLATELET VOLUME 9.9 fl (7.4-10.4); MONO # 0.9 (0.1-0.6); MONO % 10.5 % (1.7-9.3); PLATELET COUNT 348 K/mm3 (130-400); RED BLOOD COUNT 4.35 M/mm3 (4.20-5.60); REDCELL DISTRIBUTION WIDTH-CV 12.9 % (11.5-14.5)
[2017-03-31 16:22] LABS: ARTERIAL BLD GAS O2 SATURATION 95.3 % (92-100); ARTERIAL BLD GAS TCO2 CT 26.9; ARTERIAL BLOOD GAS BASE EXCESS -0.5 (-2-2); ARTERIAL BLOOD GAS HCO3 25.4 meq/L (22-26); ARTERIAL BLOOD GAS PCO2 46.4 mmHg (35-45); ARTERIAL BLOOD GAS PO2 78.6 mmHg (80-100); ARTERIAL BLOOD GAS pH 7.36 (7.35-7.45)
[2017-03-31 16:59] LABS: ALANINE AMINOTRANSFERASE 42 U/L (21-72); ALBUMIN 3.9 gm/dL (3.5-5.0); ALKALINE PHOSPHATASE 68 U/L (50-136); ANION GAP 3 mmol/L (7-16); AST,SGOT 30 U/L (15-37); BILIRUBIN,TOTAL 0.3 mg/dL (0.0-1.0); BLOOD UREA NITROGEN 16 mg/dL (9-20); CALCIUM 8.6 mg/dL (8.4-10.2); CARBON DIOXIDE 29 mmol/L (22-30); CHLORIDE 107 mmol/L (98-107); CREATININE, serum 0.71 mg/dL (0.66-1.25); GLUCOSE 110 mg/dL (74-106); POTASSIUM 4.3 mmol/L (3.4-5.0); SODIUM 139 mmol/L (137-145)
[2017-03-31 17:19] LABS: PROTHROMBIN TIME 11.3 SECONDS (9.7-12.8); TROPONIN-I < 0.012 ng/mL (0.000-0.034)
[2017-03-31 18:17] LABS: C-REACTIVE PROTEIN < 0.5 mg/dL (0.0-0.9)
[2017-04-01] VITALS (1270 sets, daily range): BP systolic 100–133; BP diastolic 72–96; PULSE 72–85; TEMP 98.4–98.9; O2SAT 84–100
[2017-04-01 02:45] LABS: ARTERIAL BLD GAS O2 SATURATION 94.2 % (92-100); ARTERIAL BLOOD GAS BASE EXCESS -0.9 (-2-2); ARTERIAL BLOOD GAS HCO3 24.5 meq/L (22-26); ARTERIAL BLOOD GAS PCO2 43.3 mmHg (35-45); ARTERIAL BLOOD GAS pH 7.37 (7.35-7.45)
[2017-04-01 04:59] LABS: ARTERIAL BLD GAS O2 SATURATION 97.3 % (92-100); ARTERIAL BLD GAS TCO2 CT 31.8; ARTERIAL BLOOD GAS BASE EXCESS 3.8 (-2-2); ARTERIAL BLOOD GAS HCO3 30.1 meq/L (22-26); ARTERIAL BLOOD GAS PCO2 53.1 mmHg (35-45); ARTERIAL BLOOD GAS pH 7.37 (7.35-7.45)
[2017-04-01 05:34] LABS: BASO % 0.3 % (0.0-2.0); GRAN # 5.8 (1.4-6.5); GRAN % 85.9 % (42.2-75.2); HEMATOCRIT 37.1 % (42.0-52.0); LYMPH # 0.6 (1.2-3.4); LYMPH % 9.3 % (20.0-51.0); MEAN CELL VOLUME 103 fl (80.0-100.0); MEAN CORPUSCULAR HEMOGLOBIN 34 pg (27.0-31.0); MEAN CORPUSCULAR HGB CONC 33 g/dl (33.0-37.0); MEAN PLATELET VOLUME 9.2 fl (7.4-10.4); MONO # 0.3 (0.1-0.6); MONO % 4.4 % (1.7-9.3); PLATELET COUNT 260 K/mm3 (130-400); REDCELL DISTRIBUTION WIDTH-CV 13.1 % (11.5-14.5)
[2017-04-01 05:35] LABS: HEMOGLOBIN 12.3 g/dl (13.5-18.0)
[2017-04-01 05:44] LABS: ALBUMIN 3.4 gm/dL (3.5-5.0); BILIRUBIN,TOTAL 0.2 mg/dL (0.0-1.0); CALCIUM 8.7 mg/dL (8.4-10.2); CREATININE, serum 0.64 mg/dL (0.66-1.25); POTASSIUM 4.4 mmol/L (3.4-5.0); TOTAL PROTEIN 6.3 gm/dL (6.4-8.2)
[2017-04-01 10:30] LABS: ARTERIAL BLD GAS O2 SATURATION 97.1 % (92-100); ARTERIAL BLD GAS TCO2 CT 30.7; ARTERIAL BLOOD GAS BASE EXCESS 2.5 (-2-2); ARTERIAL BLOOD GAS HCO3 29.1 meq/L (22-26); ARTERIAL BLOOD GAS PCO2 53.2 mmHg (35-45); ARTERIAL BLOOD GAS PO2 98.3 mmHg (80-100); ARTERIAL BLOOD GAS pH 7.36 (7.35-7.45)
[2017-04-02] VITALS (409 sets, daily range): BP systolic 102–128; BP diastolic 62–75; PULSE 70–114; TEMP 98.1–99.2; O2SAT 89–99
[2017-04-03 04:34] VITALS: BP 111/63; PULSE 85; TEMP 97.8
[2017-04-03 08:18] VITALS: BP 136/80; PULSE 103; TEMP 98.4
[2017-04-03 11:00] VITALS: BP 118/78; PULSE 100; TEMP 98.3
[2017-04-03 16:35] VITALS: BP 117/75; PULSE 110; TEMP 98
[2017-04-03 20:04] VITALS: BP 131/91; PULSE 110; TEMP 97.9
[2017-04-03 23:41] VITALS: BP 112/67; PULSE 93; TEMP 98
[2017-04-04 04:36] VITALS: BP 101/60; PULSE 83; TEMP 98.8
[2017-04-04 07:29] VITALS: BP 111/65; PULSE 79; TEMP 98
[2017-04-04 11:15] VITALS: BP 110/66; PULSE 99; TEMP 98.6
[2017-04-04 16:50] VITALS: BP 141/83; PULSE 109; TEMP 97.8
[2017-04-04 17:21] VITALS: PULSE 97
[2017-04-04 19:43] VITALS: BP 154/87; PULSE 96; TEMP 98.7
[2017-04-04 22:15] LABS: MYCOPLASMA IGM ANTIBODIES 1.31 (0.00-0.90)
[2017-04-05 00:32] VITALS: BP 123/82; PULSE 95; TEMP 98.7
[2017-04-05 03:25] VITALS: BP 129/80; PULSE 74; TEMP 98.4
[2017-04-05 08:31] VITALS: BP 111/77; PULSE 119; TEMP 98.4
[2017-04-05 11:25] VITALS: BP 111/58; PULSE 79; TEMP 98
[2017-04-05] MEDS ORDERED: PREDNISONE20 MG PO (13:15)
[2017-04-05] MEDS ORDERED: BIAXIN 500MG T500 MG PO (13:23)
[2017-04-05 15:43] VITALS: BP 123/66; PULSE 99; TEMP 98
[2017-04-06 10:36] LABS: .HISTOPLASMA ANTIGEN SERUM None Detected (())
[2017-04-07 15:42] LABS: COCCIDIOIDES AB IGG Negative (Negative); COCCIDIOIDES AB IGM Negative (Negative); COCCIDIOIDES CF Negative (Negative)
== END 2017-04-05 17:35 | disposition home or self-care (01) | DRG 189 ==
LOC: COL.ER 15:44 → MEDICAL 18:04 → ICU 19:41 → MEDICAL 20:15
PROVIDERS: Emergency Medicine; Family Medicine; Internal Medicine Critical Care Medicine; Internal Medicine Infectious Disease; Internal Medicine Pulmonary Disease; Nurse Practitioner Family
DX: J96.21 Acute and chronic respiratory failure with hypoxia (principal); E43 Unspecified severe protein-calorie malnutrition; R65.11 Systemic inflammatory response syndrome (SIRS) of non-infectious origin with acute organ dysfunction; J45.51 Severe persistent asthma with (acute) exacerbation; Z68.1 Body mass index [BMI] 19.9 or less, adult; A31.0 Pulmonary mycobacterial infection; J96.22 Acute and chronic respiratory failure with hypercapnia; J44.9 Chronic obstructive pulmonary disease, unspecified; Z87.891 Personal history of nicotine dependence; B97.89 Other viral agents as the cause of diseases classified elsewhere
CPT/HCPCS: 99223-AI; 99232-AI; 99233-AI; 99239; C9113; G8987-GO; G8988-GO; J0456; J0696; J1650; J2920; J2930; J3475; J7030; J7050; J7512

== ENCOUNTER 2017-06-07 20:00 | Inpatient (IN) | payer OTHER ==
[~2017-06-07] VITALS: Ht 154.9 cm; Wt 43.9 kg
[2017-06-07] VITALS (87 sets, daily range): BP systolic 133; BP diastolic 100; PULSE 127; TEMP 98.1; O2SAT 91–100
[2017-06-07 20:25] LABS: BASO # 0.1 (0.0-0.2); BASO % 1.4 % (0.0-2.0); EOS # 1.2 (0.0-0.7); EOS % 15.1 % (0-4.0); GRAN # 3.3 (1.4-6.5); GRAN % 42.2 % (42.2-75.2); HEMATOCRIT 45.9 % (42.0-52.0); HEMOGLOBIN 15.7 g/dl (13.5-18.0); LYMPH # 2.4 (1.2-3.4); LYMPH % 30.7 % (20.0-51.0); MEAN CELL VOLUME 99 fl (80.0-100.0); MEAN CORPUSCULAR HEMOGLOBIN 34 pg (27.0-31.0); MEAN CORPUSCULAR HGB CONC 34 g/dl (33.0-37.0); MEAN PLATELET VOLUME 9.3 fl (7.4-10.4); MONO # 0.8 (0.1-0.6); MONO % 10.3 % (1.7-9.3); PLATELET COUNT 294 K/mm3 (130-400); RED BLOOD COUNT 4.66 M/mm3 (4.20-5.60); REDCELL DISTRIBUTION WIDTH-CV 12.3 % (11.5-14.5)
[2017-06-07 20:30] LABS: PROTHROMBIN TIME 12.1 SECONDS (9.7-12.8)
[2017-06-07 20:32] LABS: ARTERIAL BLD GAS TCO2 CT 30.1; ARTERIAL BLOOD GAS BASE EXCESS 1.3 (-2-2); ARTERIAL BLOOD GAS HCO3 28.5 meq/L (22-26); ARTERIAL BLOOD GAS PCO2 54.7 mmHg (35-45); ARTERIAL BLOOD GAS pH 7.33 (7.35-7.45)
[2017-06-07 20:35] LABS: ALANINE AMINOTRANSFERASE 30 U/L (21-72); ALBUMIN 4.4 gm/dL (3.5-5.0); ALKALINE PHOSPHATASE 78 U/L (50-136); ANION GAP 11 mmol/L (7-16); AST,SGOT 29 U/L (15-37); BILIRUBIN,TOTAL 0.3 mg/dL (0.0-1.0); BLOOD UREA NITROGEN 20 mg/dL (9-20); CALCIUM 9.4 mg/dL (8.4-10.2); CARBON DIOXIDE 28 mmol/L (22-30); CHLORIDE 106 mmol/L (98-107); CREATININE, serum 0.86 mg/dL (0.66-1.25); GLUCOSE 111 mg/dL (74-106); LIPASE 189 U/L (23-300); POTASSIUM 4.2 mmol/L (3.4-5.0); SODIUM 145 mmol/L (137-145); TOTAL PROTEIN 8.7 gm/dL (6.4-8.2)
[2017-06-07 20:57] LABS: TROPONIN-I < 0.012 ng/mL (0.000-0.034)
[2017-06-07 21:57] LABS: ARTERIAL BLD GAS O2 SATURATION 92.7 % (92-100); ARTERIAL BLD GAS TCO2 CT 29.1; ARTERIAL BLOOD GAS HCO3 27.1 meq/L (22-26); ARTERIAL BLOOD GAS PCO2 64.9 mmHg (35-45); ARTERIAL BLOOD GAS PO2 73.5 mmHg (80-100); ARTERIAL BLOOD GAS pH 7.24 (7.35-7.45)
[2017-06-07 23:36] LABS: ARTERIAL BLOOD GAS BASE EXCESS -4.4 (-2-2); ARTERIAL BLOOD GAS HCO3 24.5 meq/L (22-26); ARTERIAL BLOOD GAS PCO2 61.1 mmHg (35-45); ARTERIAL BLOOD GAS PO2 82.1 mmHg (80-100); ARTERIAL BLOOD GAS pH 7.22 (7.35-7.45)
[2017-06-07 23:37] LABS: ARTERIAL BLD GAS O2 SATURATION 94.2 % (92-100)
[2017-06-08] VITALS (655 sets, daily range): BP systolic 82–97; BP diastolic 57–69; PULSE 65–94; TEMP 98.4–100.7; O2SAT 77–100
[2017-06-08 05:30] LABS: BASO % 0.5 % (0.0-2.0); GRAN # 5.6 (1.4-6.5); GRAN % 85.2 % (42.2-75.2); LYMPH # 0.7 (1.2-3.4); LYMPH % 10.9 % (20.0-51.0); MEAN CELL VOLUME 103 fl (80.0-100.0); MEAN CORPUSCULAR HGB CONC 33 g/dl (33.0-37.0); MEAN PLATELET VOLUME 9.8 fl (7.4-10.4); MONO # 0.2 (0.1-0.6); MONO % 3.2 % (1.7-9.3); PLATELET COUNT 209 K/mm3 (130-400); RED BLOOD COUNT 3.52 M/mm3 (4.20-5.60); REDCELL DISTRIBUTION WIDTH-CV 12.6 % (11.5-14.5)
[2017-06-08 05:30] LABS: ARTERIAL BLD GAS TCO2 CT 25.1; ARTERIAL BLOOD GAS BASE EXCESS -2.9 (-2-2); ARTERIAL BLOOD GAS HCO3 23.6 meq/L (22-26); ARTERIAL BLOOD GAS PCO2 47.7 mmHg (35-45); ARTERIAL BLOOD GAS PO2 64.7 mmHg (80-100); ARTERIAL BLOOD GAS pH 7.31 (7.35-7.45)
[2017-06-08 05:32] LABS: HEMATOCRIT 36.1 % (42.0-52.0); MEAN CORPUSCULAR HEMOGLOBIN 34 pg (27.0-31.0)
[2017-06-08 05:41] LABS: ALANINE AMINOTRANSFERASE 30 U/L (21-72); ALBUMIN 2.9 gm/dL (3.5-5.0); ALKALINE PHOSPHATASE 59 U/L (50-136); ANION GAP 10 mmol/L (7-16); AST,SGOT 20 U/L (15-37); BILIRUBIN,TOTAL < 0.1 mg/dL (0.0-1.0); BLOOD UREA NITROGEN 20 mg/dL (9-20); CALCIUM 7.4 mg/dL (8.4-10.2); CARBON DIOXIDE 23 mmol/L (22-30); CHLORIDE 111 mmol/L (98-107); CREATININE, serum 0.78 mg/dL (0.66-1.25); GLUCOSE 126 mg/dL (74-106); MAGNESIUM 2.2 mg/dL (1.6-2.3); POTASSIUM 4.4 mmol/L (3.4-5.0); SODIUM 144 mmol/L (137-145); TOTAL PROTEIN 5.8 gm/dL (6.4-8.2)
[2017-06-09] VITALS (953 sets, daily range): BP systolic 97–143; BP diastolic 60–84; PULSE 46–96; TEMP 98–99; O2SAT 78–100
[2017-06-09 05:20] LABS: ARTERIAL BLD GAS O2 SATURATION 95.9 % (92-100); ARTERIAL BLD GAS TCO2 CT 23.7; ARTERIAL BLOOD GAS BASE EXCESS -1.9 (-2-2); ARTERIAL BLOOD GAS HCO3 22.5 meq/L (22-26); ARTERIAL BLOOD GAS PCO2 37.2 mmHg (35-45); ARTERIAL BLOOD GAS PO2 82.7 mmHg (80-100)
[2017-06-09 05:49] LABS: BASO % 0.2 % (0.0-2.0); GRAN # 7.9 (1.4-6.5); LYMPH # 0.7 (1.2-3.4); LYMPH % 7.7 % (20.0-51.0); MEAN CELL VOLUME 101 fl (80.0-100.0); MEAN CORPUSCULAR HGB CONC 33 g/dl (33.0-37.0); MEAN PLATELET VOLUME 9.7 fl (7.4-10.4); MONO # 0.3 (0.1-0.6); MONO % 2.8 % (1.7-9.3); PLATELET COUNT 220 K/mm3 (130-400); RED BLOOD COUNT 3.51 M/mm3 (4.20-5.60); REDCELL DISTRIBUTION WIDTH-CV 12.4 % (11.5-14.5)
[2017-06-09 05:55] LABS: HEMATOCRIT 35.3 % (42.0-52.0); HEMOGLOBIN 11.8 g/dl (13.5-18.0); MEAN CORPUSCULAR HEMOGLOBIN 34 pg (27.0-31.0)
[2017-06-09 06:06] LABS: ALBUMIN 2.9 gm/dL (3.5-5.0); BILIRUBIN,TOTAL 0.2 mg/dL (0.0-1.0); CALCIUM 6.7 mg/dL (8.4-10.2); CREATININE, serum 0.66 mg/dL (0.66-1.25); MAGNESIUM 2.2 mg/dL (1.6-2.3); POTASSIUM 3.9 mmol/L (3.4-5.0); TOTAL PROTEIN 5.6 gm/dL (6.4-8.2)
[2017-06-10 04:07] VITALS: BP 104/65; PULSE 74; TEMP 98.3
[2017-06-10 07:25] LABS: BASO % 0.4 % (0.0-2.0); GRAN # 4.7 (1.4-6.5); GRAN % 82.6 % (42.2-75.2); LYMPH # 0.7 (1.2-3.4); LYMPH % 12.7 % (20.0-51.0); MEAN CELL VOLUME 99 fl (80.0-100.0); MEAN CORPUSCULAR HGB CONC 34 g/dl (33.0-37.0); MONO # 0.2 (0.1-0.6); MONO % 4.1 % (1.7-9.3); PLATELET COUNT 205 K/mm3 (130-400); RED BLOOD COUNT 3.43 M/mm3 (4.20-5.60); REDCELL DISTRIBUTION WIDTH-CV 12.1 % (11.5-14.5)
[2017-06-10 07:30] LABS: HEMATOCRIT 33.9 % (42.0-52.0); HEMOGLOBIN 11.5 g/dl (13.5-18.0); MEAN CORPUSCULAR HEMOGLOBIN 34 pg (27.0-31.0)
[2017-06-10 07:35] VITALS: BP 109/73; PULSE 70; TEMP 97.6
[2017-06-10 07:35] LABS: ALANINE AMINOTRANSFERASE 37 U/L (21-72); ALBUMIN 2.8 gm/dL (3.5-5.0); ALKALINE PHOSPHATASE 56 U/L (50-136); ANION GAP 8 mmol/L (7-16); AST,SGOT 26 U/L (15-37); BILIRUBIN,TOTAL < 0.1 mg/dL (0.0-1.0); BLOOD UREA NITROGEN 16 mg/dL (9-20); CALCIUM 7.9 mg/dL (8.4-10.2); CARBON DIOXIDE 28 mmol/L (22-30); CHLORIDE 109 mmol/L (98-107); CREATININE, serum 0.63 mg/dL (0.66-1.25); GLUCOSE 128 mg/dL (74-106); MAGNESIUM 2.3 mg/dL (1.6-2.3); POTASSIUM 3.6 mmol/L (3.4-5.0); SODIUM 145 mmol/L (137-145); TOTAL PROTEIN 5.6 gm/dL (6.4-8.2)
[2017-06-10 12:43] VITALS: BP 109/71; PULSE 84; TEMP 98.2
[2017-06-10 16:49] VITALS: BP 116/67; PULSE 86; TEMP 98.5
[2017-06-10 19:18] VITALS: BP 119/71; PULSE 86; TEMP 98.3
[2017-06-10 23:11] VITALS: BP 120/71; PULSE 75; TEMP 97.9
[2017-06-11 03:13] VITALS: BP 115/74; PULSE 77; TEMP 97.8
[2017-06-11 07:47] VITALS: BP 120/80; PULSE 68; TEMP 97.4
[2017-06-11 11:43] VITALS: BP 114/59; PULSE 84; TEMP 98.3
[2017-06-11 17:48] VITALS: BP 129/83; PULSE 89; TEMP 98.5
[2017-06-11 20:26] VITALS: BP 116/46; PULSE 88; TEMP 98.3
[2017-06-11 23:34] VITALS: BP 113/51; PULSE 66; TEMP 98.3
[2017-06-12 04:28] VITALS: BP 114/73; PULSE 74; TEMP 98.1
[2017-06-12 06:29] LABS: BASO # 0.1 (0.0-0.2); BASO % 0.6 % (0.0-2.0); EOS # 0.1 (0.0-0.7); EOS % 0.6 % (0-4.0); GRAN # 5.9 (1.4-6.5); GRAN % 60.7 % (42.2-75.2); HEMATOCRIT 38.3 % (42.0-52.0); HEMOGLOBIN 13.2 g/dl (13.5-18.0); LYMPH # 2.9 (1.2-3.4); LYMPH % 29.1 % (20.0-51.0); MEAN CELL VOLUME 97 fl (80.0-100.0); MEAN CORPUSCULAR HEMOGLOBIN 33 pg (27.0-31.0); MEAN CORPUSCULAR HGB CONC 35 g/dl (33.0-37.0); MEAN PLATELET VOLUME 9.8 fl (7.4-10.4); MONO # 0.9 (0.1-0.6); MONO % 8.7 % (1.7-9.3); PLATELET COUNT 253 K/mm3 (130-400); RED BLOOD COUNT 3.97 M/mm3 (4.20-5.60)
[2017-06-12 06:45] LABS: CALCIUM 8.7 mg/dL (8.4-10.2); CREATININE, serum 0.6 mg/dL (0.66-1.25); POTASSIUM 3.3 mmol/L (3.4-5.0)
[2017-06-12 07:38] VITALS: BP 106/77; PULSE 79; TEMP 97.8
[2017-06-12] MEDS ORDERED: PREDNISONE10 MG PO (08:52)
== END 2017-06-12 12:05 | disposition home or self-care (01) | DRG 208 ==
LOC: COL.ER 20:00 → ICU 21:07 → MEDICAL 06-09 18:03 → ICU 06-09 18:03 → MEDICAL 06-09 18:03
PROVIDERS: Emergency Medicine; Internal Medicine Pulmonary Disease; Nurse Practitioner Family
PROC: 0BH17EZ Insertion of Endotracheal Airway into Trachea, Via Natural or Artificial Opening (ICD-10-PCS; principal; 2017-06-07)
PROC: 5A1945Z Respiratory Ventilation, 24-96 Consecutive Hours (ICD-10-PCS; 2017-06-07)
DX: J96.22 Acute and chronic respiratory failure with hypercapnia (principal); J45.51 Severe persistent asthma with (acute) exacerbation; J44.1 Chronic obstructive pulmonary disease with (acute) exacerbation; E44.0 Moderate protein-calorie malnutrition; Z68.1 Body mass index [BMI] 19.9 or less, adult; E87.2 Acidosis; J96.21 Acute and chronic respiratory failure with hypoxia; S06.890S Other specified intracranial injury without loss of consciousness, sequela; V49.60XS Unspecified car occupant injured in collision with unspecified motor vehicles in traffic accident, sequela; Z87.891 Personal history of nicotine dependence; E87.6 Hypokalemia; R76.11 Nonspecific reaction to tuberculin skin test without active tuberculosis
CPT/HCPCS: 99222; 99223-AI; 99232-AI; 99239; A9284; C1751; J0330; J0456; J0696; J1644; J1650; J2060; J2704; J2920; J2930; J3010; J3475; J7030; J7050

== ENCOUNTER 2017-11-30 14:01 | Emergency (ER) | payer OTHER ==
[~2017-11-30] VITALS: Ht 152.4 cm; Wt 47.3 kg
[2017-11-30 14:05] VITALS: BP 109/85; TEMP 98.6
[2017-11-30 14:20] LABS: BASO # 0.1 (0.0-0.2); BASO % 1.4 % (0.0-2.0); EOS # 0.5 (0.0-0.7); EOS % 7.4 % (0-4.0); GRAN # 3.1 (1.4-6.5); HEMATOCRIT 42.7 % (42.0-52.0); HEMOGLOBIN 14.7 g/dl (13.5-18.0); LYMPH # 1.8 (1.2-3.4); LYMPH % 28.8 % (20.0-51.0); MEAN CELL VOLUME 97 fl (80.0-100.0); MEAN CORPUSCULAR HEMOGLOBIN 33 pg (27.0-31.0); MEAN CORPUSCULAR HGB CONC 34 g/dl (33.0-37.0); MEAN PLATELET VOLUME 9.2 fl (7.4-10.4); MONO # 0.8 (0.1-0.6); MONO % 12.2 % (1.7-9.3); PLATELET COUNT 293 K/mm3 (130-400); RED BLOOD COUNT 4.41 M/mm3 (4.20-5.60); REDCELL DISTRIBUTION WIDTH-CV 12.6 % (11.5-14.5)
[2017-11-30 14:53] LABS: ALANINE AMINOTRANSFERASE 40 U/L (21-72); ALBUMIN 3.9 gm/dL (3.5-5.0); ALKALINE PHOSPHATASE 64 U/L (50-136); ANION GAP 6 mmol/L (7-16); AST,SGOT 42 U/L (15-37); BILIRUBIN,TOTAL 0.4 mg/dL (0.0-1.0); BLOOD UREA NITROGEN 14 mg/dL (9-20); CARBON DIOXIDE 27 mmol/L (22-30); CHLORIDE 108 mmol/L (98-107); CREATININE, serum 0.76 mg/dL (0.66-1.25); GLUCOSE 94 mg/dL (74-106); LIPASE 139 U/L (23-300); POTASSIUM 4.2 mmol/L (3.4-5.0); SODIUM 141 mmol/L (137-145); TOTAL PROTEIN 7.1 gm/dL (6.4-8.2)
[2017-11-30 15:04] LABS: ARTERIAL BLD GAS O2 SATURATION 98.8 % (92-100); ARTERIAL BLD GAS TCO2 CT 21.7; ARTERIAL BLOOD GAS BASE EXCESS -4.6 (-2-2); ARTERIAL BLOOD GAS HCO3 20.5 meq/L (22-26); ARTERIAL BLOOD GAS PCO2 38.2 mmHg (35-45); ARTERIAL BLOOD GAS pH 7.35 (7.35-7.45)
[2017-11-30 15:05] LABS: ARTERIAL BLOOD GAS PO2 226.1 mmHg (80-100)
[2017-11-30 15:33] LABS: TROPONIN-I < 0.012 ng/mL (0.000-0.034)
[2017-11-30 18:30] VITALS: PULSE 78
== END 2017-11-30 18:30 | disposition short-term general hospital (02) ==
LOC: COL.ER 14:01
PROVIDERS: Emergency Medicine
DX: J44.1 Chronic obstructive pulmonary disease with (acute) exacerbation (principal)
CPT/HCPCS: J1956; J2930; J7030

== ENCOUNTER 2018-01-16 16:34 | Inpatient (IN) | payer OTHER ==
[~2018-01-16] VITALS: Ht 154.9 cm; Wt 43.9 kg
[2018-01-16] VITALS (183 sets, daily range): BP systolic 111–123; BP diastolic 75–83; PULSE 106–107; TEMP 98.1–99.4; O2SAT 86–100
[2018-01-16 16:55] LABS: BASO # 0.1 (0.0-0.2); BASO % 1.5 % (0.0-2.0); EOS # 1.2 (0.0-0.7); EOS % 12.9 % (0-4.0); GRAN % 52.4 % (42.2-75.2); HEMATOCRIT 45.9 % (42.0-52.0); HEMOGLOBIN 15.4 g/dl (13.5-18.0); LYMPH # 2.3 (1.2-3.4); LYMPH % 24.6 % (20.0-51.0); MEAN CELL VOLUME 100 fl (80.0-100.0); MEAN CORPUSCULAR HEMOGLOBIN 34 pg (27.0-31.0); MEAN CORPUSCULAR HGB CONC 34 g/dl (33.0-37.0); MEAN PLATELET VOLUME 9.6 fl (7.4-10.4); MONO # 0.8 (0.1-0.6); MONO % 8.4 % (1.7-9.3); PLATELET COUNT 298 K/mm3 (130-400); REDCELL DISTRIBUTION WIDTH-CV 12.4 % (11.5-14.5)
[2018-01-16 17:59] LABS: ALBUMIN 4.4 gm/dL (3.5-5.0); BILIRUBIN,TOTAL 0.4 mg/dL (0.0-1.0); CALCIUM 9.2 mg/dL (8.4-10.2); CREATININE, serum 0.85 mg/dL (0.66-1.25); POTASSIUM 3.9 mmol/L (3.4-5.0); TOTAL PROTEIN 7.9 gm/dL (6.4-8.2)
[2018-01-16 18:57] LABS: ARTERIAL BLD GAS O2 SATURATION 90.4 % (92-100); ARTERIAL BLD GAS TCO2 CT 30.3; ARTERIAL BLOOD GAS BASE EXCESS 2.1 (-2-2); ARTERIAL BLOOD GAS HCO3 28.7 meq/L (22-26); ARTERIAL BLOOD GAS PCO2 52.6 mmHg (35-45); ARTERIAL BLOOD GAS PO2 59.1 mmHg (80-100); ARTERIAL BLOOD GAS pH 7.36 (7.35-7.45)
[2018-01-16 20:58] LABS: ARTERIAL BLD GAS TCO2 CT 25.8; ARTERIAL BLOOD GAS BASE EXCESS -1.5 (-2-2); ARTERIAL BLOOD GAS HCO3 24.4 meq/L (22-26); ARTERIAL BLOOD GAS PCO2 45.5 mmHg (35-45); ARTERIAL BLOOD GAS PO2 285.8 mmHg (80-100); ARTERIAL BLOOD GAS pH 7.35 (7.35-7.45)
[2018-01-17] VITALS (668 sets, daily range): BP systolic 97–122; BP diastolic 69–102; PULSE 86–100; TEMP 97.9–98.9; O2SAT 70–100
[2018-01-17 05:33] LABS: ARTERIAL BLD GAS O2 SATURATION 97.9 % (92-100); ARTERIAL BLD GAS TCO2 CT 24.9; ARTERIAL BLOOD GAS BASE EXCESS -1.6 (-2-2); ARTERIAL BLOOD GAS HCO3 23.6 meq/L (22-26); ARTERIAL BLOOD GAS PCO2 41.8 mmHg (35-45); ARTERIAL BLOOD GAS pH 7.37 (7.35-7.45)
[2018-01-17 05:54] LABS: BASO % 0.6 % (0.0-2.0); GRAN # 3.9 (1.4-6.5); GRAN % 82.3 % (42.2-75.2); LYMPH # 0.7 (1.2-3.4); LYMPH % 14.6 % (20.0-51.0); MEAN CELL VOLUME 98 fl (80.0-100.0); MEAN CORPUSCULAR HEMOGLOBIN 33 pg (27.0-31.0); MEAN CORPUSCULAR HGB CONC 34 g/dl (33.0-37.0); MEAN PLATELET VOLUME 9.6 fl (7.4-10.4); MONO # 0.1 (0.1-0.6); MONO % 2.1 % (1.7-9.3); PLATELET COUNT 219 K/mm3 (130-400); RED BLOOD COUNT 3.86 M/mm3 (4.20-5.60); REDCELL DISTRIBUTION WIDTH-CV 12.4 % (11.5-14.5)
[2018-01-17 05:55] LABS: HEMOGLOBIN 12.9 g/dl (13.5-18.0)
[2018-01-17 06:08] LABS: ALBUMIN 3.7 gm/dL (3.5-5.0); BILIRUBIN,TOTAL 0.3 mg/dL (0.0-1.0); CALCIUM 8.5 mg/dL (8.4-10.2); CREATININE, serum 0.63 mg/dL (0.66-1.25); POTASSIUM 4.2 mmol/L (3.4-5.0); TOTAL PROTEIN 6.8 gm/dL (6.4-8.2)
[2018-01-17 19:28] LABS: ARTERIAL BLD GAS O2 SATURATION 96.3 % (92-100); ARTERIAL BLD GAS TCO2 CT 29.4; ARTERIAL BLOOD GAS BASE EXCESS 2.1 (-2-2); ARTERIAL BLOOD GAS HCO3 27.9 meq/L (22-26); ARTERIAL BLOOD GAS PCO2 48.2 mmHg (35-45); ARTERIAL BLOOD GAS PO2 84.7 mmHg (80-100); ARTERIAL BLOOD GAS pH 7.38 (7.35-7.45)
[2018-01-18] VITALS (455 sets, daily range): BP systolic 92–116; BP diastolic 70–82; PULSE 81–111; TEMP 97.9–99.3; O2SAT 58–100
[2018-01-18 08:25] LABS: ARTERIAL BLD GAS O2 SATURATION 96.1 % (92-100); ARTERIAL BLD GAS TCO2 CT 31.2; ARTERIAL BLOOD GAS BASE EXCESS 3.2 (-2-2); ARTERIAL BLOOD GAS HCO3 29.6 meq/L (22-26); ARTERIAL BLOOD GAS PCO2 52.2 mmHg (35-45); ARTERIAL BLOOD GAS PO2 84.4 mmHg (80-100); ARTERIAL BLOOD GAS pH 7.37 (7.35-7.45)
[2018-01-18 08:40] LABS: BASO % 0.3 % (0.0-2.0); GRAN # 7.6 (1.4-6.5); GRAN % 88.1 % (42.2-75.2); HEMATOCRIT 40.6 % (42.0-52.0); HEMOGLOBIN 13.5 g/dl (13.5-18.0); LYMPH # 0.8 (1.2-3.4); LYMPH % 9.2 % (20.0-51.0); MEAN CELL VOLUME 101 fl (80.0-100.0); MEAN CORPUSCULAR HEMOGLOBIN 34 pg (27.0-31.0); MEAN CORPUSCULAR HGB CONC 33 g/dl (33.0-37.0); MONO # 0.2 (0.1-0.6); MONO % 2.2 % (1.7-9.3); PLATELET COUNT 251 K/mm3 (130-400); RED BLOOD COUNT 4.02 M/mm3 (4.20-5.60); REDCELL DISTRIBUTION WIDTH-CV 12.3 % (11.5-14.5)
[2018-01-18 08:54] LABS: CALCIUM 9.4 mg/dL (8.4-10.2); CREATININE, serum 0.7 mg/dL (0.66-1.25); POTASSIUM 3.9 mmol/L (3.4-5.0)
[2018-01-19 02:43] VITALS: BP 108/70; PULSE 85; TEMP 97.1
[2018-01-19 06:13] LABS: BASO % 0.1 % (0.0-2.0); HEMATOCRIT 37.5 % (42.0-52.0); HEMOGLOBIN 12.6 g/dl (13.5-18.0); LYMPH # 1.1 (1.2-3.4); LYMPH % 11.6 % (20.0-51.0); MEAN CELL VOLUME 100 fl (80.0-100.0); MEAN CORPUSCULAR HEMOGLOBIN 34 pg (27.0-31.0); MEAN CORPUSCULAR HGB CONC 34 g/dl (33.0-37.0); MEAN PLATELET VOLUME 9.6 fl (7.4-10.4); MONO # 0.5 (0.1-0.6); PLATELET COUNT 233 K/mm3 (130-400); RED BLOOD COUNT 3.74 M/mm3 (4.20-5.60); REDCELL DISTRIBUTION WIDTH-CV 12.4 % (11.5-14.5)
[2018-01-19 06:22] LABS: CALCIUM 9.5 mg/dL (8.4-10.2); CREATININE, serum 0.63 mg/dL (0.66-1.25)
[2018-01-19 08:30] VITALS: BP 109/71; PULSE 80; TEMP 98.2
[2018-01-19 10:18] LABS: ARTERIAL BLD GAS O2 SATURATION 95.8 % (92-100); ARTERIAL BLD GAS TCO2 CT 31.9; ARTERIAL BLOOD GAS BASE EXCESS 5.1 (-2-2); ARTERIAL BLOOD GAS HCO3 30.4 meq/L (22-26); ARTERIAL BLOOD GAS PCO2 47.8 mmHg (35-45); ARTERIAL BLOOD GAS PO2 85.4 mmHg (80-100); ARTERIAL BLOOD GAS pH 7.42 (7.35-7.45)
[2018-01-19 12:05] VITALS: BP 106/65; PULSE 95; TEMP 98.3
[2018-01-19 15:42] VITALS: BP 104/70; PULSE 102; TEMP 98.2
[2018-01-19 19:08] VITALS: BP 108/68; PULSE 97; TEMP 98.5
[2018-01-20 00:01] VITALS: BP 96/62; PULSE 90
[2018-01-20 04:42] VITALS: BP 102/67; PULSE 84; TEMP 98.3
[2018-01-20 07:54] LABS: BASO % 0.3 % (0.0-2.0); EOS % 0.1 % (0-4.0); GRAN % 76.3 % (42.2-75.2); HEMATOCRIT 39.4 % (42.0-52.0); HEMOGLOBIN 13.2 g/dl (13.5-18.0); LYMPH # 1.5 (1.2-3.4); LYMPH % 16.6 % (20.0-51.0); MEAN CELL VOLUME 100 fl (80.0-100.0); MEAN CORPUSCULAR HEMOGLOBIN 33 pg (27.0-31.0); MEAN CORPUSCULAR HGB CONC 34 g/dl (33.0-37.0); MEAN PLATELET VOLUME 9.7 fl (7.4-10.4); MONO # 0.6 (0.1-0.6); MONO % 6.4 % (1.7-9.3); PLATELET COUNT 236 K/mm3 (130-400); RED BLOOD COUNT 3.95 M/mm3 (4.20-5.60); REDCELL DISTRIBUTION WIDTH-CV 12.3 % (11.5-14.5)
[2018-01-20 08:00] VITALS: BP 119/71; PULSE 88; TEMP 97.9
[2018-01-20 08:01] LABS: CALCIUM 9.6 mg/dL (8.4-10.2); CREATININE, serum 0.67 mg/dL (0.66-1.25); POTASSIUM 4.3 mmol/L (3.4-5.0)
[2018-01-20 11:19] VITALS: BP 109/71; PULSE 99; TEMP 98.5
[2018-01-20] MEDS ORDERED: PREDNISONE20 MG PO (12:41)
== END 2018-01-20 15:00 | disposition home or self-care (01) | DRG 189 ==
LOC: COL.ER 16:34 → ICU 16:39 → SURG 16:39 → ICU 19:13 → MEDICAL 01-18 14:37 → ICU 01-18 14:37 → MEDICAL 01-18 14:37
PROVIDERS: Emergency Medicine; Internal Medicine Pulmonary Disease; Nurse Practitioner Family; Physician Assistant
DX: J96.21 Acute and chronic respiratory failure with hypoxia (principal); E43 Unspecified severe protein-calorie malnutrition; J45.901 Unspecified asthma with (acute) exacerbation; A31.0 Pulmonary mycobacterial infection; Z68.1 Body mass index [BMI] 19.9 or less, adult; J96.22 Acute and chronic respiratory failure with hypercapnia; R00.0 Tachycardia, unspecified; D64.9 Anemia, unspecified
CPT/HCPCS: 99222-AI; 99232-AI; 99239; A4216; C9113; J0696; J1650; J2920; J2930; J7030

== ENCOUNTER 2018-02-27 16:23 | Inpatient (IN) | payer MEDICAID ==
[2018-02-27] VITALS (178 sets, daily range): O2SAT 87–100
[~2018-02-27] VITALS: Ht 157.5 cm; Wt 45.0 kg
[2018-02-27 16:51] LABS: BASO # 0.1 (0.0-0.2); BASO % 1.4 % (0.0-2.0); EOS # 0.5 (0.0-0.7); EOS % 6.2 % (0-4.0); GRAN # 4.4 (1.4-6.5); GRAN % 56.8 % (42.2-75.2); HEMOGLOBIN 15.1 g/dl (13.5-18.0); LYMPH # 2.1 (1.2-3.4); LYMPH % 26.7 % (20.0-51.0); MEAN CELL VOLUME 100 fl (80.0-100.0); MEAN CORPUSCULAR HEMOGLOBIN 34 pg (27.0-31.0); MEAN CORPUSCULAR HGB CONC 34 g/dl (33.0-37.0); MEAN PLATELET VOLUME 8.9 fl (7.4-10.4); MONO # 0.7 (0.1-0.6); MONO % 8.8 % (1.7-9.3); PLATELET COUNT 316 K/mm3 (130-400); REDCELL DISTRIBUTION WIDTH-CV 12.5 % (11.5-14.5)
[2018-02-27 17:01] LABS: ALANINE AMINOTRANSFERASE 27 U/L (21-72); ALBUMIN 4.5 gm/dL (3.5-5.0); ALKALINE PHOSPHATASE 57 U/L (50-136); ANION GAP 6 mmol/L (7-16); AST,SGOT 33 U/L (15-37); BILIRUBIN,TOTAL 0.6 mg/dL (0.0-1.0); BLOOD UREA NITROGEN 16 mg/dL (9-20); CALCIUM 9.3 mg/dL (8.4-10.2); CARBON DIOXIDE 32 mmol/L (22-30); CHLORIDE 104 mmol/L (98-107); CREATININE, serum 0.75 mg/dL (0.66-1.25); GLUCOSE 100 mg/dL (74-106); POTASSIUM 4.2 mmol/L (3.4-5.0); SODIUM 142 mmol/L (137-145); TOTAL PROTEIN 7.9 gm/dL (6.4-8.2)
[2018-02-27 17:13] LABS: TROPONIN-I < 0.012 ng/mL (0.000-0.034)
[2018-02-27] MEDS ORDERED: RIFADIN300 MG PO (17:32)
[2018-02-27] MEDS ORDERED: MULTI VITAMINS1 TAB PO (17:37)
[2018-02-27 17:40] LABS: ARTERIAL BLD GAS O2 SATURATION 96.5 % (92-100); ARTERIAL BLD GAS TCO2 CT 26.1; ARTERIAL BLOOD GAS BASE EXCESS -0.7 (-2-2); ARTERIAL BLOOD GAS HCO3 24.8 meq/L (22-26); ARTERIAL BLOOD GAS PCO2 43.7 mmHg (35-45); ARTERIAL BLOOD GAS PO2 89.5 mmHg (80-100); ARTERIAL BLOOD GAS pH 7.37 (7.35-7.45)
[2018-02-27] MEDS ORDERED: SPIRIVA RE2.5 MCG/Ac IH (17:40)
--- NOTE | 2018-02-27 19:33 | NUR ---
Received telephone report from RICHARD Rosenberg.
--- NOTE | 2018-02-27 20:03 | NUR ---
Patient arrived to the unit via stretcher. Able to self-transfer to ICU bed. Attached to all monitors and assisted to use the bathroom. Assessment complete.
--- NOTE | 2018-02-27 23:45 | NUR ---
At bedside to check on patient. Watcing TV; in no distress at this time. Wheezing no longer audible on expiration. Pt. reports feeling better and states respiratory status is improved. Denied any pain when asked. Nurse performed med rec at this time. Patient takes ibuprofen at home for pain. When asked about the type of pain it is taken for patient replied "chest pain. Inquired further; patient stated pain is aching and sometimes worse on expiration or with cough, unchanged by exertion. Patient reported pain is chronic. Nurse asked if having chest pain at this time and patient paused for several seconds then said "yes." Stated it was unchanged from the normal quality of pain and rated it at a 5 or 6 out of 10. Denied offer for pain medication at this time.
[2018-02-28] VITALS (285 sets, daily range): BP systolic 94–129; BP diastolic 60–95; PULSE 70–99; TEMP 97.6–98.8; O2SAT 88–100
[2018-02-28] MEDS ORDERED: CALTRATE-600 W600 MG PO (00:06)
[2018-02-28] MEDS ORDERED: ADVIL200 MG PO (00:09)
[2018-02-28] MEDS ORDERED: TYLENOL 8 HR PO (00:12)
--- NOTE | 2018-02-28 05:37 | NUR ---
podiatric technician in room to draw am labs. Patient resting comfortably. Denies any pain. Breakfast menu and phone provided for when kitchen opens.
[2018-02-28 06:10] LABS: BASO % 0.2 % (0.0-2.0); GRAN # 3.5 (1.4-6.5); GRAN % 82.6 % (42.2-75.2); HEMATOCRIT 38.3 % (42.0-52.0); LYMPH # 0.7 (1.2-3.4); LYMPH % 15.8 % (20.0-51.0); MEAN CELL VOLUME 100 fl (80.0-100.0); MEAN CORPUSCULAR HEMOGLOBIN 33 pg (27.0-31.0); MEAN CORPUSCULAR HGB CONC 33 g/dl (33.0-37.0); MEAN PLATELET VOLUME 9.4 fl (7.4-10.4); MONO # 0.1 (0.1-0.6); MONO % 1.2 % (1.7-9.3); PLATELET COUNT 254 K/mm3 (130-400); RED BLOOD COUNT 3.83 M/mm3 (4.20-5.60); REDCELL DISTRIBUTION WIDTH-CV 12.5 % (11.5-14.5)
[2018-02-28 06:16] LABS: HEMOGLOBIN 12.8 g/dl (13.5-18.0)
[2018-02-28 06:22] LABS: CALCIUM 8.7 mg/dL (8.4-10.2); CREATININE, serum 0.65 mg/dL (0.66-1.25); POTASSIUM 3.9 mmol/L (3.4-5.0)
--- NOTE | 2018-02-28 07:00 | NUR ---
BEDSIDE REPORT RECEIVED FROM RICHARD GARCIA
--- NOTE | 2018-02-28 07:39 | NUR ---
BEDSIDE REPORT GIVEN TO RICHARD JOHNSON. PATIENT CARE TRANSFERED.
[2018-02-28 08:57] LABS: INFLUENZA A NEGATIVE; INFLUENZA B NEGATIVE
--- NOTE | 2018-02-28 09:50 | NUR ---
REPORT GIVEN TO RICHARD HAMILTON
--- NOTE | 2018-02-28 10:14 | NUR ---
Plan to return home. Patient reports that she is fairly independent and lives alone. Patient indicated that he does not have any family locally. Patient reports he has a sister that would be his proxy Stephaniechristie Otero [phone], PT indicated that he is on O2 daily but denies any other DME. Patient has medicaid as of the of the month. [facility]. Denies any home health services. No additonal needs identifed.
--- NOTE | 2018-02-28 10:20 | NUR ---
Pt arrived to room 305 at this time. He is A/O x3. Up ambulating in the room, currently on 3L O2 via NC. He denies SOB. No pain at this time. Pt denies any needs. Will continue to monitor.
--- NOTE | 2018-02-28 18:15 | NUR ---
Pt had uneventful afternoon. He was up independently in the room. Denied SOB. No concerns at this time. VSS. Pt resting in bed awaiting dinner at this time.
[2018-03-01 03:34] VITALS: BP 100/62; PULSE 77; TEMP 98.3
--- NOTE | 2018-03-01 05:15 | NUR ---
PT HAD UNEVENTFUL NOC. NO C/O PAIN. NO NOTED N/V/D. APPEARED TO HAVE RESTED WELL. NO ISSUES OR CONERNS VOICED
--- NOTE | 2018-03-01 07:41 | NUR ---
Assessment complete.patient awake,a/ox4.denies pain or discomfort at this time.denies SOB.LCSTA.oxygen at 3l/nc.stats in upper 90s.all meds given.VSS.remains on droplet precaution pending RV panel.no other concerns voiced at this time.
[2018-03-01 08:34] VITALS: BP 123/76; PULSE 72; TEMP 98.3
[2018-03-01] MEDS ORDERED: LEVAQUIN 5500 MG/TA1 PO (08:47)
[2018-03-01] MEDS ORDERED: PREDNISONE10 MG PO (08:48)
--- NOTE | 2018-03-01 10:44 | NUR ---
SW attended clinical rounding. Patient is DC home today.
--- NOTE | 2018-03-01 10:55 | NUR ---
PATIENT DISCHARGE HOME AT THIS TIME.ALL DISCHARGE INSTRUCTIONS DISCUSSED.ALL QUESTIONS ANSWERED.IV DISCONTINUED.ALL BELONGNINGS TAKEN.TRACEY ESPINOZA ESCORTED PATIENT OUT TO VEHICLE.
== END 2018-03-01 10:57 | disposition home or self-care (01) | DRG 189 ==
LOC: COL.ER 16:23 → ICU 17:11 → MEDICAL 18:06 → ICU 18:07 → MEDICAL 02-28 10:27
PROVIDERS: Emergency Medicine; ADMIT Internal Medicine
DX: J96.21 Acute and chronic respiratory failure with hypoxia (principal); J45.51 Severe persistent asthma with (acute) exacerbation; E46 Unspecified protein-calorie malnutrition; Z68.1 Body mass index [BMI] 19.9 or less, adult; R64 Cachexia; A31.0 Pulmonary mycobacterial infection; Z87.820 Personal history of traumatic brain injury; Z87.891 Personal history of nicotine dependence
CPT/HCPCS: 99223-AI; 99232-AI; 99239; A4216; J0692; J1650; J1956; J2920; J2930; J7030; J7512

== ENCOUNTER 2018-11-02 18:18 | Emergency (ER) | payer MEDICAID ==
[~2018-11-02] VITALS: Ht 154.9 cm; Wt 44.1 kg
[~2018-11-02 18:18] MED LIST changes: +CALTRATE-600 W600 MG PO; +TYLENOL 8 HR PO
[2018-11-02 18:21] VITALS: BP 112/67; TEMP 98.4
[2018-11-02 20:07] VITALS: PULSE 66
== END 2018-11-02 20:09 | disposition home or self-care (01) ==
LOC: COL.ER 18:18
DX: S01.111A Laceration without foreign body of right eyelid and periocular area, initial encounter (principal); J44.9 Chronic obstructive pulmonary disease, unspecified; R40.2412 Glasgow coma scale score 13-15, at arrival to emergency department; W22.8XXA Striking against or struck by other objects, initial encounter; Y92.009 Unspecified place in unspecified non-institutional (private) residence as the place of occurrence of the external cause

== ENCOUNTER → 2018-11-08 | Outpatient (CLI) | payer MEDICAID ==
[2018-11-08 11:13] VITALS: BP 104/71; PULSE 63; TEMP 97.9
== END ==
LOC: COL.ER 11:04
DX: Z48.02 Encounter for removal of sutures (principal)

== ENCOUNTER → 2019-10-12 | Emergency (ER) | payer MEDICARE, MEDICAID ==
[~2019-10-12] MED LIST changes: +NEURONTIN100 MG/CAP PO
== END ==
LOC: COL.ER 17:11
DX: S76.111A Strain of right quadriceps muscle, fascia and tendon, initial encounter (principal); J45.909 Unspecified asthma, uncomplicated; Z79.1 Long term (current) use of non-steroidal anti-inflammatories (NSAID); W10.8XXA Fall (on) (from) other stairs and steps, initial encounter; Y93.01 Activity, walking, marching and hiking

== ENCOUNTER 2019-10-18 04:04 | Emergency (ER) | payer MEDICARE, MEDICAID ==
[~2019-10-18] VITALS: Ht 154.9 cm; Wt 44.1 kg
[~2019-10-18 04:04] MED LIST changes: -NEURONTIN100 MG/CAP PO
[2019-10-18 04:25] VITALS: TEMP 98.1
[2019-10-18 05:24] LABS: BASO # 0.1 (0.0-0.2); EOS # 0.4 (0.0-0.7); GRAN % 48.7 % (42.2-75.2); HEMATOCRIT 39.2 % (42.0-52.0); HEMOGLOBIN 13.1 g/dl (13.5-18.0); LYMPH # 2.1 (1.2-3.4); LYMPH % 33.9 % (20.0-51.0); MEAN CELL VOLUME 97 fl (80.0-100.0); MEAN CORPUSCULAR HEMOGLOBIN 33 pg (27.0-31.0); MEAN CORPUSCULAR HGB CONC 33 g/dl (33.0-37.0); MEAN PLATELET VOLUME 8.8 fl (7.4-10.4); MONO # 0.6 (0.1-0.6); MONO % 10.1 % (1.7-9.3); PLATELET COUNT 244 K/mm3 (130-400); RED BLOOD COUNT 4.03 M/mm3 (4.20-5.60); REDCELL DISTRIBUTION WIDTH-CV 12.8 % (11.5-14.5)
[2019-10-18 05:38] LABS: ALANINE AMINOTRANSFERASE 20 U/L (4-49); ALBUMIN 4.2 gm/dL (3.5-5.0); ALKALINE PHOSPHATASE 40 U/L (50-136); ANION GAP 4 mmol/L (7-16); AST,SGOT 29 U/L (15-37); BILIRUBIN,TOTAL 0.4 mg/dL (0.0-1.0); BLOOD UREA NITROGEN 29 mg/dL (9-20); C-REACTIVE PROTEIN < 0.5 mg/dL (0.0-0.9); CARBON DIOXIDE 32 mmol/L (22-30); CHLORIDE 104 mmol/L (98-107); CREATININE, serum 0.78 (0.66-1.25); GLUCOSE 79 mg/dL (74-106); MAGNESIUM 2.2 mg/dL (1.6-2.3); SODIUM 140 mmol/L (137-145); TOTAL PROTEIN 7.4 gm/dL (6.4-8.2)
[2019-10-18 05:55] LABS: ERYTHROCYTE SEDIMENTATION RATE 10 mm/hr (0-30)
[2019-10-18] MEDS ORDERED: NEURONTIN100 MG/CAP PO (06:18)
[2019-10-18 06:30] VITALS: BP 137/89; PULSE 70
== END 2019-10-18 06:30 | disposition home or self-care (01) ==
LOC: COL.ER 04:04
PROVIDERS: Emergency Medicine
DX: M79.661 Pain in right lower leg (principal); J45.909 Unspecified asthma, uncomplicated; Z79.52 Long term (current) use of systemic steroids

== ENCOUNTER 2019-10-24 19:22 | Emergency (ER) | payer MEDICARE, MEDICAID ==
[~2019-10-24] VITALS: Ht 154.9 cm; Wt 44.1 kg
[~2019-10-24 19:22] MED LIST changes: +NEURONTIN100 MG/CAP PO
[2019-10-24 19:56] VITALS: BP 128/74; PULSE 82; TEMP 98.3
== END 2019-10-24 20:21 | disposition home or self-care (01) ==
LOC: COL.ER 19:22
DX: M54.10 Radiculopathy, site unspecified (principal); J45.909 Unspecified asthma, uncomplicated; Z79.52 Long term (current) use of systemic steroids

== ENCOUNTER 2019-10-26 22:19 | Emergency (ER) | payer MEDICARE, MEDICAID ==
[~2019-10-26] VITALS: Ht 154.9 cm; Wt 44.1 kg
[2019-10-26 22:28] VITALS: BP 134/84; TEMP 98.6
[2019-10-26 23:12] LABS: BASO # 0.1 (0.0-0.2); BASO % 1.6 % (0.0-2.0); EOS # 0.4 (0.0-0.7); EOS % 5.6 % (0-4.0); GRAN # 3.6 (1.4-6.5); GRAN % 52.2 % (42.2-75.2); HEMOGLOBIN 12.2 g/dl (13.5-18.0); LYMPH # 2.1 (1.2-3.4); LYMPH % 30.2 % (20.0-51.0); MEAN CELL VOLUME 98 fl (80.0-100.0); MEAN CORPUSCULAR HEMOGLOBIN 33 pg (27.0-31.0); MEAN CORPUSCULAR HGB CONC 33 g/dl (33.0-37.0); MEAN PLATELET VOLUME 9.1 fl (7.4-10.4); MONO # 0.7 (0.1-0.6); MONO % 10.1 % (1.7-9.3); PLATELET COUNT 284 K/mm3 (130-400); RED BLOOD COUNT 3.74 M/mm3 (4.20-5.60); REDCELL DISTRIBUTION WIDTH-CV 13.2 % (11.5-14.5)
[2019-10-26 23:15] LABS: HEMATOCRIT 36.5 % (42.0-52.0)
[2019-10-26 23:37] LABS: ERYTHROCYTE SEDIMENTATION RATE 11 mm/hr (0-30)
[2019-10-26 23:42] LABS: ALBUMIN 3.7 gm/dL (3.5-5.0); BILIRUBIN,TOTAL 0.3 mg/dL (0.0-1.0); CALCIUM 8.8 mg/dL (8.4-10.2); CREATININE, serum 1.2 (0.66-1.25); TOTAL PROTEIN 6.5 gm/dL (6.4-8.2)
[2019-10-27] MEDS ORDERED: NORCO 325 MG-51 TAB PO (01:10)
[2019-10-27 02:00] VITALS: PULSE 79
== END 2019-10-27 02:00 | disposition home or self-care (01) ==
LOC: COL.ER 22:19
PROVIDERS: Family Medicine
DX: M54.16 Radiculopathy, lumbar region (principal); Z79.52 Long term (current) use of systemic steroids
CPT/HCPCS: J1885

== ENCOUNTER 2019-12-20 11:04 | Emergency (ER) | payer MEDICARE, MEDICAID ==
[~2019-12-20] VITALS: Ht 157.5 cm; Wt 89.5 kg
[2019-12-20 11:11] VITALS: TEMP 98.4
[2019-12-20] MEDS ORDERED: MOBIC 7.5MG7.5 MG PO (12:11)
[2019-12-20] MEDS ORDERED: PREDNISONE20 MG PO (14:25)
[2019-12-20] MEDS ORDERED: ZITHROMAX Z PA250 MG PO (14:25)
[2019-12-20 14:51] VITALS: BP 126/85; PULSE 83
== END 2019-12-20 14:53 | disposition home or self-care (01) ==
LOC: COL.ER 11:04
DX: J45.901 Unspecified asthma with (acute) exacerbation (principal); Z79.51 Long term (current) use of inhaled steroids
CPT/HCPCS: J1100; J7512

== ENCOUNTER 2019-12-22 21:16 | Inpatient (IN) | payer MEDICARE, MEDICAID ==
[~2019-12-22] VITALS: Ht 157.5 cm; Wt 48.0 kg
[~2019-12-22 21:16] MED LIST changes: +MOBIC 7.5MG7.5 MG PO; +ZITHROMAX Z PA250 MG PO
[2019-12-22 22:38] LABS: BASO % 0.1 % (0.0-2.0); GRAN # 8.2 (1.4-6.5); GRAN % 84.2 % (42.2-75.2); HEMATOCRIT 40.3 % (42.0-52.0); HEMOGLOBIN 13.5 g/dl (13.5-18.0); LYMPH # 1.1 (1.2-3.4); LYMPH % 11.1 % (20.0-51.0); MEAN CELL VOLUME 97 fl (80.0-100.0); MEAN CORPUSCULAR HEMOGLOBIN 33 pg (27.0-31.0); MEAN CORPUSCULAR HGB CONC 34 g/dl (33.0-37.0); MEAN PLATELET VOLUME 9.3 fl (7.4-10.4); MONO # 0.4 (0.1-0.6); MONO % 4.2 % (1.7-9.3); PLATELET COUNT 290 K/mm3 (130-400); RED BLOOD COUNT 4.16 M/mm3 (4.20-5.60)
[2019-12-22 22:53] LABS: ARTERIAL BLD GAS O2 SATURATION 93.7 % (92-100); ARTERIAL BLD GAS TCO2 CT 26.8; ARTERIAL BLOOD GAS BASE EXCESS 0.3 (-2-2); ARTERIAL BLOOD GAS HCO3 25.5 meq/L (22-26); ARTERIAL BLOOD GAS PCO2 43.2 mmHg (35-45); ARTERIAL BLOOD GAS PO2 67.9 mmHg (80-100); ARTERIAL BLOOD GAS pH 7.39 (7.35-7.45)
[2019-12-22 22:53] LABS: ALANINE AMINOTRANSFERASE 29 U/L (4-49); ALBUMIN 4.3 gm/dL (3.5-5.0); ALKALINE PHOSPHATASE 48 U/L (50-136); ANION GAP 9 mmol/L (7-16); AST,SGOT 34 U/L (15-37); BILIRUBIN,TOTAL 0.4 mg/dL (0.0-1.0); BLOOD UREA NITROGEN 28 mg/dL (9-20); C-REACTIVE PROTEIN < 0.5 mg/dL (0.0-0.9); CALCIUM 9.1 mg/dL (8.4-10.2); CARBON DIOXIDE 26 mmol/L (22-30); CHLORIDE 106 mmol/L (98-107); GLUCOSE 156 mg/dL (74-106); SODIUM 141 mmol/L (137-145); TOTAL PROTEIN 7.5 gm/dL (6.4-8.2)
[2019-12-22 23:06] LABS: TROPONIN-I < 0.012 ng/mL (0.000-0.035)
[2019-12-23] VITALS (863 sets, daily range): BP systolic 108–128; BP diastolic 69–89; PULSE 72–88; TEMP 97.5–98.5; O2SAT 87–100
[2019-12-23] MEDS ORDERED: TYLENOL 500MG500 MG PO (00:58)
--- NOTE | 2019-12-23 01:04 | NUR ---
Received report from ED, nurse, Jane.
--- NOTE | 2019-12-23 01:22 | NUR ---
Patient arrives to ICU room 3 via ED stretcher. Patient is able to scoot self into ICU bed. Patient is receiving 2L oxygen via nasal cannula; tolerating well. Prior to movement, he is not dyspneic, however, with activity he becomes slightly short of breath. He is audibly wheezing afterwards. No fluids infusing at arrival. Patient denies any pain or discomfort. Initial vitals are within normal limits. No skin issues noted. After being settled into ICU bed, patient is resting quietly in bed. Breathing is regular and unlabored. Audible wheezes have subsided, though are auscultated upon assessment. Patient medications are sent with dameon Arndthousehold refrigerator mechanic, to pharmacy. SONIA Bautista, aware of patient's arrival. Will continue to monitor.
--- NOTE | 2019-12-23 07:45 | NUR ---
Report given to RICHARD Eid. Patient resting quietly in bed. No needs noted at this time. Vitals within normal limits.
--- NOTE | 2019-12-23 10:53 | NUR ---
MARK met with the patient to discuss discharge plan. The patient lives alone in [place]. He states that his brother, Mitul, lives outside of [place]. He reports independence with ADLs and does not have any DME. The patient's PCP is Dr. Roula Bettencourt and he receives his medications from [facility]. He reports no difficulties obtaining his meds. The patient does not have a DPOA-HC, but he was interested in completing one while here. MARK provided the form. The patient designated his sister, Stephanie Otero (ph#[phone]). MARK and the patient's RN, Ragini, witnessed the patient's signature. The patient was provided with the original and some copies. MARK placed a copy in the patient's chart. The patient plans to and states that he is ready to get back home upon discharge. He states that he drove himself to the hospital. MARK then contacted and reviewed the above information with the patient's sister, Stephanie. Stephanie lives in [place]. Stephanie had no concerns about the patient returning back home upon dishcarge. She states that she will contact there other brother, Mitul, to also check in on the patient. SW to continue to follow as needed.
--- NOTE | 2019-12-23 19:40 | NUR ---
report received from RICHARD Eid.
[2019-12-24] VITALS (580 sets, daily range): BP systolic 118–154; BP diastolic 77–88; PULSE 77–103; TEMP 97.8–98.1; O2SAT 78–100
[2019-12-24 04:15] LABS: BASO % 0.1 % (0.0-2.0); GRAN # 13.6 (1.4-6.5); GRAN % 89.5 % (42.2-75.2); HEMATOCRIT 38.7 % (42.0-52.0); HEMOGLOBIN 12.7 g/dl (13.5-18.0); LYMPH # 0.9 (1.2-3.4); LYMPH % 6.1 % (20.0-51.0); MEAN CELL VOLUME 98 fl (80.0-100.0); MEAN CORPUSCULAR HEMOGLOBIN 32 pg (27.0-31.0); MEAN CORPUSCULAR HGB CONC 33 g/dl (33.0-37.0); MEAN PLATELET VOLUME 9.4 fl (7.4-10.4); MONO # 0.6 (0.1-0.6); MONO % 3.7 % (1.7-9.3); PLATELET COUNT 250 K/mm3 (130-400); RED BLOOD COUNT 3.94 M/mm3 (4.20-5.60); REDCELL DISTRIBUTION WIDTH-CV 12.7 % (11.5-14.5)
[2019-12-24 04:22] LABS: CALCIUM 8.8 mg/dL (8.4-10.2); CREATININE, serum 0.78 (0.66-1.25); MAGNESIUM 2.1 mg/dL (1.6-2.3); POTASSIUM 4.1 mmol/L (3.4-5.0)
--- NOTE | 2019-12-24 05:17 | NUR ---
PT HAD AN UNEVENTFUL NIGHT. PT ALERT AND ORIENTED X 4, ON 02 2L NC AT NIGHT -BASELINE. DENIES ANY PAIN OR DISCOMFORT. PT ALSO INDEPENDENT TO THE BATHROOM.
--- NOTE | 2019-12-24 07:17 | NUR ---
REPORT GIVEN TO RICHARD JOHNSON.
--- NOTE | 2019-12-24 13:00 | NUR ---
PATIENT IS UP INDEPENDENTLY IN ROOM ON 2L O2. HE TOLERATES THIS WELL. WILL CONTINUE TO MONITOR.
--- NOTE | 2019-12-24 18:10 | NUR ---
PATIENT GIVEN SHOWER AT THIS TIME WITH 2L O2 IN PLACE. HE IS SHORT OF BREATH AFTER SHOWER. CALLED RT FOR BREATHING TREATMENT, PER PATIENT REQUEST.
[2019-12-25] VITALS (319 sets, daily range): BP systolic 129–136; BP diastolic 70–89; PULSE 91–99; TEMP 98.1–98.8; O2SAT 86–99
[2019-12-25 04:55] LABS: HEMATOCRIT 40.3 % (42.0-52.0); HEMOGLOBIN 13.5 g/dl (13.5-18.0); MEAN CELL VOLUME 97 fl (80.0-100.0); MEAN CORPUSCULAR HEMOGLOBIN 33 pg (27.0-31.0); MEAN CORPUSCULAR HGB CONC 34 g/dl (33.0-37.0); MEAN PLATELET VOLUME 9.6 fl (7.4-10.4); PLATELET COUNT 264 K/mm3 (130-400); RED BLOOD COUNT 4.15 M/mm3 (4.20-5.60); REDCELL DISTRIBUTION WIDTH-CV 12.8 % (11.5-14.5)
[2019-12-25 05:08] LABS: CALCIUM 9.2 mg/dL (8.4-10.2); CREATININE, serum 0.75 (0.66-1.25); MAGNESIUM 2.3 mg/dL (1.6-2.3)
[2019-12-25 06:07] LABS: BAND 4 % (0-10); LYMPHOCYTE 8 % (20.0-51.0); NEUTROPHILS 81 % (42.0-75.2); PLATELET ESTIMATE NORMAL (NORMAL)
--- NOTE | 2019-12-25 07:19 | NUR ---
report given to RICHARD Eid.
[2019-12-25] MEDS ORDERED: IPRATROPIUM BROM3 M1 IH (10:44)
[2019-12-25] MEDS ORDERED: INCRUSE EL62.5 MCG/A IH (10:45)
[2019-12-25] MEDS ORDERED: PREDNISONE10 MG PO (10:51)
--- NOTE | 2019-12-25 12:00 | NUR ---
Discharged to home driving POV with belongings
== END 2019-12-25 12:00 | disposition home or self-care (01) | DRG 202 ==
LOC: COL.ER 21:16 → ICU 23:35
PROVIDERS: Emergency Medicine; Internal Medicine Pulmonary Disease
PROC: 02HV33Z Insertion of Infusion Device into Superior Vena Cava, Percutaneous Approach (ICD-10-PCS; principal; 2019-12-23)
DX: J45.51 Severe persistent asthma with (acute) exacerbation (principal); J96.21 Acute and chronic respiratory failure with hypoxia; J96.22 Acute and chronic respiratory failure with hypercapnia; E87.2 Acidosis; R65.10 Systemic inflammatory response syndrome (SIRS) of non-infectious origin without acute organ dysfunction; E46 Unspecified protein-calorie malnutrition; Z20.828 Contact with and (suspected) exposure to other viral communicable diseases; M81.0 Age-related osteoporosis without current pathological fracture; Z87.820 Personal history of traumatic brain injury; Z87.891 Personal history of nicotine dependence
CPT/HCPCS: 99223-AI; 99232-AI; 99239; C1751; C1892; J0692; J1650; J2920; J2930; J7030; J7512

== ENCOUNTER 2020-02-20 11:31 | Emergency (ER) | payer MEDICARE, MEDICAID ==
[~2020-02-20] VITALS: Ht 157.5 cm; Wt 44.1 kg
[~2020-02-20 11:31] MED LIST changes: +INCRUSE EL62.5 MCG/A IH; +IPRATROPIUM BROM3 M1 IH
[2020-02-20 13:27] VITALS: BP 110/64; PULSE 78; TEMP 98.3
== END 2020-02-20 13:31 | disposition home or self-care (01) ==
LOC: COL.ER 11:31
DX: R04.0 Epistaxis (principal); J45.909 Unspecified asthma, uncomplicated; J44.9 Chronic obstructive pulmonary disease, unspecified; Z87.891 Personal history of nicotine dependence; Z79.52 Long term (current) use of systemic steroids; Z79.51 Long term (current) use of inhaled steroids

== ENCOUNTER 2020-05-01 23:28 | Emergency (ER) | payer MEDICARE, MEDICAID ==
[~2020-05-01] VITALS: Ht 154.9 cm; Wt 44.1 kg
[2020-05-01 23:33] VITALS: TEMP 98.1
[2020-05-02] MEDS ORDERED: PREDNISONE20 MG PO (00:52)
[2020-05-02] MEDS ORDERED: DOXYCYCLINE 10100 MG PO (00:52)
[2020-05-02 01:20] VITALS: BP 119/75; PULSE 87
== END 2020-05-02 01:20 | disposition home or self-care (01) ==
LOC: COL.ER 23:28
DX: J45.901 Unspecified asthma with (acute) exacerbation (principal); R04.0 Epistaxis; J44.9 Chronic obstructive pulmonary disease, unspecified; Z20.822 Contact with and (suspected) exposure to COVID-19; Z87.891 Personal history of nicotine dependence; Z79.51 Long term (current) use of inhaled steroids
CPT/HCPCS: J7512

== ENCOUNTER 2020-09-17 15:59 | Emergency (ER) | payer MEDICARE, MEDICAID ==
[~2020-09-17] VITALS: Ht 162.6 cm; Wt 44.1 kg
[~2020-09-17 15:59] MED LIST changes: +DOXYCYCLINE 10100 MG PO
[2020-09-17 17:17] VITALS: TEMP 98.2
[2020-09-17] MEDS ORDERED: MOBIC 7.5MG7.5 MG PO (18:48)
[2020-09-17 18:55] VITALS: BP 142/79; PULSE 62
== END 2020-09-17 18:55 | disposition home or self-care (01) ==
LOC: COL.ER 15:59
DX: M25.561 Pain in right knee (principal); J44.9 Chronic obstructive pulmonary disease, unspecified; Z79.899 Other long term (current) drug therapy

== ENCOUNTER 2020-09-21 21:00 | Emergency (ER) | payer MEDICARE, MEDICAID ==
[~2020-09-21] VITALS: Ht 149.9 cm; Wt 44.1 kg
[2020-09-22 00:30] VITALS: BP 149/77; PULSE 68; TEMP 98.3
== END 2020-09-22 00:30 | disposition home or self-care (01) ==
LOC: COL.ER 21:00
DX: M79.661 Pain in right lower leg (principal); M25.561 Pain in right knee; J44.9 Chronic obstructive pulmonary disease, unspecified

== ENCOUNTER 2020-10-24 19:53 | Emergency (ER) | payer MEDICARE, MEDICAID ==
[~2020-10-24] VITALS: Ht 154.9 cm; Wt 45.5 kg
[2020-10-24 21:20] VITALS: BP 139/84; PULSE 71; TEMP 98.1
== END 2020-10-24 21:10 | disposition home or self-care (01) ==
LOC: COL.ER 19:53
DX: M06.861 Other specified rheumatoid arthritis, right knee (principal); J44.9 Chronic obstructive pulmonary disease, unspecified; Z79.899 Other long term (current) drug therapy

== ENCOUNTER 2020-10-27 23:14 | Emergency (ER) | payer MEDICARE, MEDICAID ==
[~2020-10-27] VITALS: Ht 157.5 cm; Wt 44.1 kg
[2020-10-27 23:50] VITALS: BP 128/81; PULSE 69; TEMP 98.4
[2020-10-28] MEDS ORDERED: NORCO 325 MG-51 TAB PO (00:50)
== END 2020-10-28 01:20 | disposition home or self-care (01) ==
LOC: COL.ER 23:14
DX: M25.561 Pain in right knee (principal); M79.661 Pain in right lower leg; J44.9 Chronic obstructive pulmonary disease, unspecified; G89.29 Other chronic pain; M79.604 Pain in right leg; Z79.52 Long term (current) use of systemic steroids; Z79.899 Other long term (current) drug therapy; Z79.51 Long term (current) use of inhaled steroids

== ENCOUNTER → 2020-12-16 | Outpatient (CLI) | payer MEDICARE | LOC: COL.RAD 12:59 | DX: M94.261 Chondromalacia, right knee (principal); M71.21 Synovial cyst of popliteal space [Baker], right knee ==

== ENCOUNTER 2021-04-14 11:54 | Emergency (ER) | payer MEDICARE ==
[~2021-04-14] VITALS: Ht 157.5 cm; Wt 44.1 kg
[2021-04-14 12:57] LABS: BASO # 0.1 K/mm3 (0.0-0.2); BASO % 1.2 % (0.0-2.0); EOS # 0.7 K/mm3 (0.0-0.7); EOS % 7.1 % (0.0-4.0); GRAN # 6.1 K/mm3 (1.4-6.5); GRAN % 66.9 % (42.2-75.2); HEMATOCRIT 44.6 % (42.0-52.0); HEMOGLOBIN 14.9 g/dl (13.5-18.0); LYMPH # 1.7 K/mm3 (1.2-3.4); LYMPH % 18.7 % (20.0-51.0); MEAN CELL VOLUME 99 fl (80.0-100.0); MEAN CORPUSCULAR HEMOGLOBIN 33 pg (27-31); MEAN CORPUSCULAR HGB CONC 33 g/dl (33.0-37.0); MEAN PLATELET VOLUME 8.8 fl (7.4-10.4); MONO # 0.5 K/mm3 (0.1-0.6); MONO % 5.8 % (1.7-9.3); PLATELET COUNT 326 K/mm3 (130-400); RED BLOOD COUNT 4.51 M/mm3 (4.20-5.60); REDCELL DISTRIBUTION WIDTH-CV 12.7 % (11.5-14.5)
[2021-04-14 13:23] LABS: ALBUMIN 4.3 gm/dL (3.4-4.8); BILIRUBIN,TOTAL 0.6 mg/dL (0.2-1.2); C-REACTIVE PROTEIN 0.38 mg/dL (0.00-0.50); CALCIUM 9.6 mg/dL (8.4-10.2); CREATININE, serum 0.94 mg/dL (0.72-1.25); POTASSIUM 4.6 mmol/L (3.5-4.5); TOTAL PROTEIN 7.8 gm/dL (6.2-8.1)
[2021-04-14 16:15] VITALS: BP 112/87; PULSE 72
[2021-04-14] MEDS ORDERED: PREDNISONE20 MG PO (16:20)
== END 2021-04-14 16:24 | disposition home or self-care (01) ==
LOC: COL.ER 11:54
PROVIDERS: Nurse Practitioner
DX: J44.1 Chronic obstructive pulmonary disease with (acute) exacerbation (principal); Z20.822 Contact with and (suspected) exposure to COVID-19
CPT/HCPCS: J2930

== ENCOUNTER 2021-05-31 19:32 | Inpatient (IN) | payer MEDICARE ==
[~2021-05-31] VITALS: Ht 157.5 cm; Wt 45.7 kg
[2021-05-31 20:38] LABS: BASO # 0.1 K/mm3 (0.0-0.2); EOS # 0.4 K/mm3 (0.0-0.7); EOS % 3.3 % (0.0-4.0); GRAN # 8.6 K/mm3 (1.4-6.5); GRAN % 67.8 % (42.2-75.2); HEMATOCRIT 48.9 % (42.0-52.0); HEMOGLOBIN 16.7 g/dl (13.5-18.0); LYMPH # 2.5 K/mm3 (1.2-3.4); LYMPH % 19.4 % (20.0-51.0); MEAN CELL VOLUME 97 fl (80.0-100.0); MEAN CORPUSCULAR HEMOGLOBIN 33 pg (27-31); MEAN CORPUSCULAR HGB CONC 34 g/dl (33.0-37.0); MEAN PLATELET VOLUME 9.2 fl (7.4-10.4); MONO % 8.2 % (1.7-9.3); PLATELET COUNT 404 K/mm3 (130-400); RED BLOOD COUNT 5.02 M/mm3 (4.20-5.60); REDCELL DISTRIBUTION WIDTH-CV 13.4 % (11.5-14.5)
[2021-05-31 21:05] LABS: ALBUMIN 4.7 gm/dL (3.4-4.8); BILIRUBIN,TOTAL 0.5 mg/dL (0.2-1.2); C-REACTIVE PROTEIN 0.33 mg/dL (0.00-0.50); CALCIUM 9.9 mg/dL (8.4-10.2); CREATININE, serum 1.65 mg/dL (0.72-1.25); TOTAL PROTEIN 8.3 gm/dL (6.2-8.1)
[2021-05-31 21:11] LABS: TROPONIN-I 0.018 ng/mL (0.00-0.033)
[2021-05-31 23:42] VITALS: BP 127/85; PULSE 89; TEMP 98.6
--- NOTE | 2021-06-01 00:11 | NUR ---
Patient arrived to medical unit at approximately 2340. SAMI Eid in with patient at this time.
[2021-06-01] MEDS ORDERED: RT SPIRIVA18 MCG IH (00:23)
[2021-06-01] MEDS ORDERED: VITAMIN C500 MG PO (00:25)
--- NOTE | 2021-06-01 00:51 | NUR ---
Patient alert and oriented. Denies pain and discomfort. Peripheral IV to left AC, fluids running per orders. Denies SOB and dyspnea at rest, but does with exertion. On oxygen at 2 L/min via NC. LS expiratory wheezes throughout. Has moist cough, unable to produce sputum. HRR. BSAx4. No edema. Voices no questions, needs, or concerns at this time. In bed with call light within reach.
[2021-06-01 04:55] VITALS: BP 103/73; PULSE 74; TEMP 98.1
--- NOTE | 2021-06-01 05:51 | NUR ---
Patient has denied pain and discomfort. Continues on oxygen at 2 L/min via NC. Continues on IV fluids and ABX per orders, as well as steroids. Voices no questions, needs, or concerns at this time. In bed with call light within reach.
[2021-06-01 06:21] LABS: BASO % 0.3 % (0.0-2.0); GRAN # 6.1 K/mm3 (1.4-6.5); GRAN % 86.9 % (42.2-75.2); HEMATOCRIT 40.8 % (42.0-52.0); LYMPH # 0.9 K/mm3 (1.2-3.4); LYMPH % 12.1 % (20.0-51.0); MEAN CELL VOLUME 101 fl (80.0-100.0); MEAN CORPUSCULAR HGB CONC 33 g/dl (33.0-37.0); MEAN PLATELET VOLUME 9.3 fl (7.4-10.4); MONO % 0.4 % (1.7-9.3); RED BLOOD COUNT 4.05 M/mm3 (4.20-5.60); REDCELL DISTRIBUTION WIDTH-CV 13.5 % (11.5-14.5)
[2021-06-01 06:23] LABS: MEAN CORPUSCULAR HEMOGLOBIN 33 pg (27-31)
[2021-06-01 06:25] LABS: HEMOGLOBIN 13.3 g/dl (13.5-18.0)
[2021-06-01 06:26] LABS: PLATELET COUNT 286 K/mm3 (130-400)
[2021-06-01 06:38] LABS: CALCIUM 8.3 mg/dL (8.4-10.2); CREATININE, serum 1.12 mg/dL (0.72-1.25); MAGNESIUM 2.3 mg/dL (1.6-2.6); POTASSIUM 4.5 mmol/L (3.5-4.5)
[2021-06-01 07:41] VITALS: BP 122/83; PULSE 71; TEMP 98.1
--- NOTE | 2021-06-01 09:31 | NUR ---
Initial visit; Patient thanked Special Education Aide for coming by to see him. Patient stated he is a [employer] and was receptive to prayer. Special Education Aide offered prayer and God's blessings.
--- NOTE | 2021-06-01 10:06 | NUR ---
Patient is very pleasant and reports he feels well this morning, and is hopeful that he may discharge today or tomorrow. This RN informed the patient that this would be up to the hospitalist. Patient denies any concerns at this time.
[2021-06-01 12:10] VITALS: BP 112/68; PULSE 86; TEMP 97.5
--- NOTE | 2021-06-01 15:09 | NUR ---
foster care worker met with patient to discuss discharge plan. Patient reports that he currently lives at home alone in [place]. He states that he is independent with his ADL's and does not utilize any DME equipment to assist with mobility. Patient reports to no home oxygen needs but is currently on 2L NC oxygen in room. PCP is Dr. Bettencourt and he utilizes [facility] for medications with no cost difficulty. Patient reports that he does have a DPOA-HC established and it should be on file with PCP's office. Patient is planning on returning home with no concerns. Discharge plan: Home; may need home o2
[2021-06-01 16:26] VITALS: BP 126/79; PULSE 85; TEMP 98.1
--- NOTE | 2021-06-01 16:42 | NUR ---
Patient has done well today, denies any concerns. Call light remains w/in reach.
[2021-06-01 20:07] VITALS: BP 116/71; PULSE 103; TEMP 98.1
--- NOTE | 2021-06-01 22:51 | NUR ---
Patient assessed around 2039. Alert and oriented x 4, and able to make needs known. Denies having pain and discomfort at this time. Peripheral INT to left AC. Recieving IV ABX and steroids per orders. Denies SOB and dyspnea. States he is feeling much better tonight compared to last night. On oxygen at 2 L/min via NC. LS CTA. HRR. BSAx4. No edema. Voices no questions, needs, or concerns at this time. In bed with call light within reach.
[2021-06-02 00:03] VITALS: BP 111/67; PULSE 90; TEMP 98.4
--- NOTE | 2021-06-02 02:45 | NUR ---
Azithromycin started at approximately 0145. Flushed with 5 ml NS prior to starting ABX, and site flushed well without pain or discomfort. At approximately 0210, patient called and stated that IV was burning. Upon assessment, IV site infiltrated. Redness/swelling present. Stopped medication immediately and took out IV. Warm pack applied to site. Attempted to start new IV site without success. Patient not wanting another IV if not required. Updated SAMI Eid. New order to give Motrin, and stated she will try to change to PO medications, and patient does not need 0300 Solumedrol or to finish ABX. Alternated warm pack with ice to site. Decreased swelling at this time.
[2021-06-02 03:36] VITALS: BP 128/67; PULSE 84; TEMP 98.2
--- NOTE | 2021-06-02 05:34 | NUR ---
Continues to have some soreness to left arm from IV infiltration. Happy that medications have been changed to oral and he does not need an IV. Remains on oxygen at 2 L/min via NC at this time. Ice and heat applied to left arm as requested. Site with decreased redness, swelling, and pain. Voices no questions, needs, or concerns at this time. In bed with call light within reach.
[2021-06-02 06:39] LABS: BASO % 0.1 % (0.0-2.0); GRAN # 13.5 K/mm3 (1.4-6.5); GRAN % 89.3 % (42.2-75.2); HEMATOCRIT 37.3 % (42.0-52.0); HEMOGLOBIN 12.6 g/dl (13.5-18.0); LYMPH % 6.5 % (20.0-51.0); MEAN CELL VOLUME 99 fl (80.0-100.0); MEAN CORPUSCULAR HEMOGLOBIN 34 pg (27-31); MEAN CORPUSCULAR HGB CONC 34 g/dl (33.0-37.0); MEAN PLATELET VOLUME 9.2 fl (7.4-10.4); MONO # 0.5 K/mm3 (0.1-0.6); MONO % 3.6 % (1.7-9.3); PLATELET COUNT 264 K/mm3 (130-400); RED BLOOD COUNT 3.76 M/mm3 (4.20-5.60); REDCELL DISTRIBUTION WIDTH-CV 13.6 % (11.5-14.5)
[2021-06-02 06:56] LABS: CALCIUM 8.3 mg/dL (8.4-10.2); CREATININE, serum 0.76 mg/dL (0.72-1.25); POTASSIUM 4.1 mmol/L (3.5-4.5)
[2021-06-02 07:19] VITALS: BP 97/53; PULSE 77; TEMP 98
[2021-06-02] MEDS ORDERED: PROAIR HFA0.09 MG/AC IH (09:36)
[2021-06-02] MEDS ORDERED: ZITHROMAX500 M2 PO (09:37)
[2021-06-02] MEDS ORDERED: PREDNISONE20 MG PO (09:37)
[2021-06-02] MEDS ORDERED: 00186-0370-20 IH (09:39)
--- NOTE | 2021-06-02 10:00 | NUR ---
Patient discharging home, discharge ordrers and instrucitons reviewed with patient, instructed to follow up with PCP as we have scheduled, instructed to take meds as prescribed, scripts for Prednisone/azithromycin/albuterol provided, NO IV to remove, he is ambulatory and drove himself, DISINTEGRATOR OPERATOR escorting him out the door
== END 2021-06-02 10:15 | disposition home or self-care (01) | DRG 189 ==
LOC: COL.ER 19:32 → MEDICAL 22:34
PROVIDERS: Nurse Practitioner; Physician Assistant; Student in an Organized Health Care Education/Training Program; ADMIT Internal Medicine
DX: J96.01 Acute respiratory failure with hypoxia (principal); J45.51 Severe persistent asthma with (acute) exacerbation; N17.9 Acute kidney failure, unspecified; E44.0 Moderate protein-calorie malnutrition; Z68.1 Body mass index [BMI] 19.9 or less, adult; M19.90 Unspecified osteoarthritis, unspecified site; E78.5 Hyperlipidemia, unspecified; M81.0 Age-related osteoporosis without current pathological fracture; R41.3 Other amnesia; Z87.891 Personal history of nicotine dependence; Z87.820 Personal history of traumatic brain injury; Z20.822 Contact with and (suspected) exposure to COVID-19
CPT/HCPCS: 99223-AI; 99232-AI; 99239; J0456; J1644; J2920; J2930; J7030; J7050

== ENCOUNTER 2021-07-20 20:45 | Emergency (ER) | payer MEDICARE ==
[~2021-07-20] VITALS: Ht 157.5 cm; Wt 50.0 kg
[~2021-07-20 20:45] MED LIST changes: +RT SPIRIVA18 MCG IH; +VITAMIN C500 MG PO
[2021-07-20 20:50] VITALS: TEMP 97.8
[2021-07-20 21:00] LABS: HEMATOCRIT 42.3 % (42.0-52.0); HEMOGLOBIN 14.3 g/dl (13.5-18.0); MEAN CELL VOLUME 101 fl (80.0-100.0); MEAN CORPUSCULAR HEMOGLOBIN 34 pg (27-31); MEAN CORPUSCULAR HGB CONC 34 g/dl (33.0-37.0); MEAN PLATELET VOLUME 9.2 fl (7.4-10.4); PLATELET COUNT 303 K/mm3 (130-400); RED BLOOD COUNT 4.21 M/mm3 (4.20-5.60); REDCELL DISTRIBUTION WIDTH-CV 13.9 % (11.5-14.5)
[2021-07-20 21:09] LABS: BASO # 0.2 K/mm3 (0.0-0.2); BASO % 1.5 % (0.0-2.0); GRAN # 4.1 K/mm3 (1.4-6.5); GRAN % 42.6 % (42.2-75.2); LYMPH # 3.5 K/mm3 (1.2-3.4); LYMPH % 36.5 % (20.0-51.0); MONO # 0.9 K/mm3 (0.1-0.6); MONO % 9.1 % (1.7-9.3)
[2021-07-20 21:20] LABS: ALANINE AMINOTRANSFERASE 26 U/L (0-55); ALKALINE PHOSPHATASE 46 U/L (40-150); ANION GAP 13 mmol/L (7-16); AST,SGOT 29 U/L (5-34); BILIRUBIN,TOTAL 0.4 mg/dL (0.2-1.2); BLOOD UREA NITROGEN 21 mg/dL (8-26); CALCIUM 9.3 mg/dL (8.4-10.2); CARBON DIOXIDE 22 mmol/L (23-31); CHLORIDE 109 mmol/L (98-107); CREATININE, serum 1.14 mg/dL (0.72-1.25); GLUCOSE 116 mg/dL (70-99); POTASSIUM 4.4 mmol/L (3.5-4.5); SODIUM 144 mmol/L (136-145); TOTAL PROTEIN 7.6 gm/dL (6.2-8.1)
[2021-07-20 21:26] LABS: TROPONIN-I < 0.010 ng/mL (0.00-0.033)
[2021-07-20] MEDS ORDERED: IPRATROPIUM BROM3 M1 IH (22:02)
[2021-07-20] MEDS ORDERED: DOXYCYCLINE HY100 MG PO (22:02)
[2021-07-20] MEDS ORDERED: NEB MC (22:02)
[2021-07-20] MEDS ORDERED: PREDNISONE20 MG PO (22:02)
[2021-07-20 22:10] VITALS: BP 125/83; PULSE 87
--- NOTE | 2021-07-22 08:31 | NUR ---
Patient arrived back to ER admissions last night stating that he was able to afford his medications that were prescribed from visit on 07/20 but could not afford the nebulizer machine. Phone call made to [facility] who state that the machine is $59.99 and they do not bill them through insurance. Phone call made to [facility] and was quoted $75.10 for the machine. This SW wrote patient a voucher for the nebulizer machine and provided it to the patient.
== END 2021-07-20 22:16 | disposition home or self-care (01) ==
LOC: COL.ER 20:45
PROVIDERS: Nurse Practitioner Primary Care
DX: J44.1 Chronic obstructive pulmonary disease with (acute) exacerbation (principal); Z20.822 Contact with and (suspected) exposure to COVID-19
CPT/HCPCS: J7512

== ENCOUNTER 2021-08-30 17:23 | Emergency (ER) | payer MEDICARE ==
[~2021-08-30 17:23] MED LIST changes: +DOXYCYCLINE HY100 MG PO; +NEB MC
== END 2021-08-30 17:50 | disposition left against medical advice (07) ==
LOC: COL.ER 17:23
DX: J98.9 Respiratory disorder, unspecified (principal)

== ENCOUNTER 2022-03-23 16:48 | Observation (INO) | payer MEDICARE ==
[~2022-03-23] VITALS: Ht 157.5 cm; Wt 45.2 kg
[~2022-03-23 16:48] MED LIST changes: +VITAMIND3 5000 PO
[2022-03-23 17:28] LABS: BASO # 0.1 K/mm3 (0.0-0.2); BASO % 0.9 % (0.0-2.0); EOS # 0.4 K/mm3 (0.0-0.7); EOS % 4.1 % (0.0-4.0); GRAN # 5.1 K/mm3 (1.4-6.5); GRAN % 59.9 % (42.2-75.2); HEMATOCRIT 39.4 % (42.0-52.0); HEMOGLOBIN 13.5 g/dl (13.5-18.0); LYMPH % 23.5 % (20.0-51.0); MEAN CELL VOLUME 98 fl (80.0-100.0); MEAN CORPUSCULAR HEMOGLOBIN 33 pg (27-31); MEAN CORPUSCULAR HGB CONC 34 g/dl (33.0-37.0); MONO % 11.2 % (1.7-9.3); PLATELET COUNT 294 K/mm3 (130-400); RED BLOOD COUNT 4.04 M/mm3 (4.20-5.60); REDCELL DISTRIBUTION WIDTH-CV 12.8 % (11.5-14.5)
[2022-03-23 17:47] LABS: ALANINE AMINOTRANSFERASE 31 U/L (0-55); ALBUMIN 3.8 gm/dL (3.4-4.8); ALKALINE PHOSPHATASE 49 U/L (40-150); ANION GAP 11 mmol/L (7-16); AST,SGOT 36 U/L (5-34); BILIRUBIN,TOTAL 0.4 mg/dL (0.2-1.2); BLOOD UREA NITROGEN 28 mg/dL (8-26); C-REACTIVE PROTEIN 0.13 mg/dL (0.00-0.50); CALCIUM 9.5 mg/dL (8.4-10.2); CARBON DIOXIDE 23 mmol/L (23-31); CHLORIDE 108 mmol/L (98-107); CREATININE, serum 0.97 mg/dL (0.72-1.25); GLUCOSE 110 mg/dL (70-99); POTASSIUM 4.1 mmol/L (3.5-4.5); SODIUM 142 mmol/L (136-145); TOTAL PROTEIN 7.3 gm/dL (6.2-8.1)
[2022-03-23 18:01] LABS: TROPONIN-I < 0.010 ng/mL (0.00-0.033)
[2022-03-23] MEDS ORDERED: DOXYCYCLINE 10100 MG PO (19:29)
[2022-03-23] MEDS ORDERED: PREDNISONE20 MG PO (19:29)
[2022-03-23] MEDS ORDERED: MOBIC 7.5MG7.5 MG PO ×2 (20:27)
[2022-03-23] MEDS ORDERED: INCRUSE EL62.5 MCG/A IH (20:28)
[2022-03-23] MEDS ORDERED: RT SPIRIVA18 MCG IH (20:28)
[2022-03-23] MEDS ORDERED: VITAMIN C500 MG PO (21:40)
[2022-03-23] MEDS ORDERED: VITAMIND3 5000 PO (21:41)
[2022-03-23 22:01] VITALS: BP 131/86; PULSE 78; TEMP 97.8
[2022-03-23 23:35] VITALS: BP 107/71; PULSE 86; TEMP 97.9
--- NOTE | 2022-03-24 00:12 | NUR ---
PATIENT UP TO MEDICAL FLOOR FROM ED. PATIENT A&O X3 AND CONVERSATES APPROPRIATELY. PATIENT NOTED TO BE ON TWO LITERS OF OXYGEN WHICH HE NORMALLY DOES NOT WEAR AT HOME. PATIENT DENIES PAIN AND VITAL SIGNS ARE STABLE. PATIENT DENIES FURTHER QUESTIONS OR CONCERNS AT THIS TIME
[2022-03-24 03:18] VITALS: BP 104/61; PULSE 79; TEMP 97.7
[2022-03-24 06:30] LABS: BASO % 0.2 % (0.0-2.0); GRAN # 4.4 K/mm3 (1.4-6.5); GRAN % 88.3 % (42.2-75.2); HEMOGLOBIN 12.3 g/dl (13.5-18.0); LYMPH # 0.5 K/mm3 (1.2-3.4); LYMPH % 10.5 % (20.0-51.0); MEAN CELL VOLUME 100 fl (80.0-100.0); MEAN CORPUSCULAR HEMOGLOBIN 33 pg (27-31); MEAN CORPUSCULAR HGB CONC 34 g/dl (33.0-37.0); MEAN PLATELET VOLUME 9.1 fl (7.4-10.4); MONO % 0.8 % (1.7-9.3); PLATELET COUNT 249 K/mm3 (130-400); RED BLOOD COUNT 3.68 M/mm3 (4.20-5.60); REDCELL DISTRIBUTION WIDTH-CV 12.8 % (11.5-14.5)
[2022-03-24 06:33] LABS: HEMATOCRIT 36.7 % (42.0-52.0)
[2022-03-24 06:48] LABS: CALCIUM 9.3 mg/dL (8.4-10.2); CREATININE, serum 0.81 mg/dL (0.72-1.25); POTASSIUM 3.9 mmol/L (3.5-4.5)
[2022-03-24 07:26] VITALS: BP 121/84; PULSE 76; TEMP 98
--- NOTE | 2022-03-24 07:57 | NUR ---
At 0700 patient awake and sitting up in bed upon entering the room. Patient is on 2L oxygen NC and has 75Ml NS infusing in his right arm with no signs of redness or swelling. Patient is alert and oriented and conversates well. Patient denied having any pain at this time. Patient is on tele with an apical pulse of 76 with normal sinus rythym. Bed placed with call light in reach. Shift assessment completed with primary nurse notified.
--- NOTE | 2022-03-24 10:03 | NUR ---
During morning medication administration, the patient was sitting up in bed and started coughiing and wheezing after swallowing his pill medication. The patient stated " a pill was stuck in his throat". After drinking small sips of water he was able to dislodge the medication. Primary nurse notified.
[2022-03-24 11:24] VITALS: BP 131/78; PULSE 90; TEMP 98.3
--- NOTE | 2022-03-24 11:30 | NUR ---
Initial visit: Pt was on the phone. Postdoctoral Fellow asked if he had any needs, he responded none at this time. Postdoctoral Fellow will follow up as needed
[2022-03-24] MEDS ORDERED: PROAIR HFA0.09 MG/AC IH (12:23)
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
[2022-03-24 15:49] VITALS: BP 130/74; PULSE 85; TEMP 98
--- NOTE | 2022-03-24 18:04 | NUR ---
PT AWAKE, ALERT & ORIENTED. PT STATES HIS BREATHING HAS IMPROVED GREATLY. STILL REQUIRING 2L O2, SOB WITH EXERTION. STEADY ON HIS FEET, NO COMPLAINTS OF PAIN. REQUESTING MORE FOOD FOR DINNER, STATING HE HAD DIFFICULTY CHEWING THE CHICKEN. BED IN LOWEST POSITION, CALL LIGHT WITHIN REACH.
[2022-03-24 19:57] VITALS: BP 130/64; PULSE 91; TEMP 97.7
[2022-03-24 23:00] VITALS: BP 100/58; PULSE 85; TEMP 97.9
[2022-03-25 04:13] VITALS: BP 137/54; PULSE 70; TEMP 97.9
[2022-03-25 07:00] VITALS: BP 104/62; PULSE 77; TEMP 97.4
[2022-03-25 07:04] LABS: HEMOGLOBIN 12.2 g/dl (13.5-18.0); MEAN CELL VOLUME 98 fl (80.0-100.0); MEAN CORPUSCULAR HEMOGLOBIN 33 pg (27-31); MEAN CORPUSCULAR HGB CONC 34 g/dl (33.0-37.0); MEAN PLATELET VOLUME 9.4 fl (7.4-10.4); PLATELET COUNT 268 K/mm3 (130-400); RED BLOOD COUNT 3.68 M/mm3 (4.20-5.60); REDCELL DISTRIBUTION WIDTH-CV 12.9 % (11.5-14.5)
[2022-03-25 07:10] LABS: HEMATOCRIT 36.2 % (42.0-52.0)
[2022-03-25 07:19] LABS: CALCIUM 8.5 mg/dL (8.4-10.2); CREATININE, serum 0.74 mg/dL (0.72-1.25); POTASSIUM 3.9 mmol/L (3.5-4.5)
--- NOTE | 2022-03-25 09:17 | NUR ---
Patient was resting in bed quietyly upon entering the room. Patient is on 2L oxygen NC and has a IV in the right forearm with 75mL/hr NS infusing. The IV was free of redness and edema. Patient sttated he needed to use the restroom and when returning to his bed he was short of breath, and wheezing. Patient denies any pain at this time. Call light was placed within reach. Shift assessment completed and primary nurse notified.
[2022-03-25 09:55] LABS: LYMPHOCYTE 3 % (20.0-51.0); NEUTROPHILS 94 % (42.0-75.2)
[2022-03-25 09:56] LABS: PLATELET ESTIMATE NORMAL (NORMAL); TOXIC GRANULATION PRESENT
--- NOTE | 2022-03-25 11:12 | NUR ---
An exercise oximetry was ordered. The patient did not qualify for oxygen. The patient may be able to discharge later today. The patient was downgraded to observation status. MARK met with the patient to update on the status change. MARK presented and read the Medicare Outpatient Observation Notice Form to the patient. The patient verbalized understanding and signed the form. MARK provided him with a copy. The patient shares that friends will transport him home today. The patient also completed a DPOA-HC with the nurses yesterday. MARK placed a copy in the patient's chart and provided the original back and some copies to the patient. The patient designated his brother, Mitul. No additional needs at this time.
[2022-03-25 11:47] VITALS: BP 120/60; PULSE 92; TEMP 97
[2022-03-25] MEDS ORDERED: PREDNISONE10 MG PO (13:48)
--- NOTE | 2022-03-25 15:28 | NUR ---
Discharge instructions given both verbal and handwritten. Discussed f/u appt, home meications, s/s of infections and when to return to the hospital. INT to right forearm DCd cath intact. Escorted off schmitt in wheelchair by PCT in stable condition.
== END 2022-03-25 15:40 | disposition home or self-care (01) ==
LOC: COL.ER 16:48 → MEDICAL 20:50
PROVIDERS: Hospitalist; Nurse Practitioner; Nurse Practitioner Family; ADMIT Internal Medicine
DX: J45.51 Severe persistent asthma with (acute) exacerbation (principal); J96.01 Acute respiratory failure with hypoxia; Z86.19 Personal history of other infectious and parasitic diseases; M81.0 Age-related osteoporosis without current pathological fracture; R41.3 Other amnesia; S06.9XAS Unspecified intracranial injury with loss of consciousness status unknown, sequela; E46 Unspecified protein-calorie malnutrition; R64 Cachexia; Z20.822 Contact with and (suspected) exposure to COVID-19; M19.90 Unspecified osteoarthritis, unspecified site; Z68.1 Body mass index [BMI] 19.9 or less, adult; Z87.891 Personal history of nicotine dependence; Z79.899 Other long term (current) drug therapy; Z79.1 Long term (current) use of non-steroidal anti-inflammatories (NSAID)
CPT/HCPCS: OP; C9113; G0378; J0456; J1650; J2920; J2930; J7030; J7050

== ENCOUNTER 2023-02-17 12:08 | Emergency (ER) | payer MEDICARE, MEDICAID ==
[~2023-02-17] VITALS: Ht 157.5 cm; Wt 44.5 kg
[2023-02-17 12:08] VITALS: TEMP 97.8
[~2023-02-17 12:08] MED LIST changes: +KENALOG 60 ML60 M1 TP; +PROLIA60 MG/ML SQ; +TRIAMCINOLONE A15 G3 TP; +TRIAMCINOLONE A15 GM TP; +VALTREX1 GM PO
[2023-02-17 12:29] LABS: BASO # 0.1 K/mm3 (0.0-0.2); BASO % 1.1 % (0.0-2.0); EOS # 0.5 K/mm3 (0.0-0.7); EOS % 7.7 % (0.0-4.0); GRAN # 3.5 K/mm3 (1.4-6.5); GRAN % 56.9 % (42.2-75.2); HEMATOCRIT 42.2 % (42.0-52.0); HEMOGLOBIN 13.6 g/dl (13.5-18.0); LYMPH # 1.5 K/mm3 (1.2-3.4); LYMPH % 24.2 % (20.0-51.0); MEAN CELL VOLUME 102 fl (80.0-100.0); MEAN CORPUSCULAR HEMOGLOBIN 33 pg (27-31); MEAN CORPUSCULAR HGB CONC 32 g/dl (33.0-37.0); MEAN PLATELET VOLUME 9.2 fl (7.4-10.4); MONO # 0.6 K/mm3 (0.1-0.6); MONO % 9.8 % (1.7-9.3); PLATELET COUNT 356 K/mm3 (130-400); RED BLOOD COUNT 4.12 M/mm3 (4.20-5.60)
[2023-02-17 12:49] LABS: ALANINE AMINOTRANSFERASE 49 U/L (0-55); ALKALINE PHOSPHATASE 53 U/L (40-150); ANION GAP 10 mmol/L (7-16); AST,SGOT 38 U/L (5-34); BILIRUBIN,TOTAL 0.4 mg/dL (0.2-1.2); BLOOD UREA NITROGEN 38 mg/dL (8-26); CALCIUM 10.1 mg/dL (8.4-10.2); CARBON DIOXIDE 27 mmol/L (23-31); CHLORIDE 109 mmol/L (98-107); CREATININE, serum 1.12 mg/dL (0.72-1.25); GLUCOSE 137 mg/dL (70-99); POTASSIUM 3.9 mmol/L (3.5-4.5); SODIUM 146 mmol/L (136-145); TOTAL PROTEIN 7.5 gm/dL (6.2-8.1)
[2023-02-17 12:52] LABS: TROPONIN-I < 0.010 ng/mL (0.00-0.033)
[2023-02-17] MEDS ORDERED: ALBUTEROL1.25 MG/3 IH (14:09)
[2023-02-17] MEDS ORDERED: PREDNISONE20 MG PO (14:09)
[2023-02-17 14:36] VITALS: BP 120/79; PULSE 83
== END 2023-02-17 14:46 | disposition home or self-care (01) ==
LOC: COL.ER 12:08
PROVIDERS: Emergency Medicine
DX: J45.909 Unspecified asthma, uncomplicated (principal)
CPT/HCPCS: J7512

== ENCOUNTER 2023-05-05 12:46 | Emergency (ER) | payer MEDICARE, MEDICAID ==
[~2023-05-05] VITALS: Ht 157.5 cm; Wt 44.1 kg
[~2023-05-05 12:46] MED LIST changes: +ALBUTEROL1.25 MG/3 IH
[2023-05-05 12:53] VITALS: BP 129/86; TEMP 97.8
[2023-05-05 14:21] VITALS: PULSE 85
== END 2023-05-05 14:21 | disposition home or self-care (01) ==
LOC: COL.ER 12:46
DX: S92.321A Displaced fracture of second metatarsal bone, right foot, initial encounter for closed fracture (principal); W19.XXXA Unspecified fall, initial encounter

== ENCOUNTER 2023-06-22 15:45 | Emergency (ER) | payer MEDICARE, MEDICAID ==
[~2023-06-22] VITALS: Ht 157.5 cm; Wt 44.5 kg
[2023-06-22 15:53] VITALS: TEMP 98.7
[2023-06-22] MEDS ORDERED: Albuterol/Ipratropium 3 MG-0.5 MG/3 ML Neb Soln IH SCH (17:45)
[2023-06-22] MEDS ORDERED: methylPREDNISolone Sod Succ 125 MG/2 ML VIAL IV ONE (17:45)
[2023-06-22 19:00] VITALS: BP 124/80; PULSE 94
== END 2023-06-22 19:00 | disposition home or self-care (01) ==
LOC: COL.ER 15:45
DX: J44.1 Chronic obstructive pulmonary disease with (acute) exacerbation (principal)
CPT/HCPCS: J2919

== ENCOUNTER 2023-10-21 17:11 | Inpatient (IN) | payer MEDICARE, MEDICAID ==
[~2023-10-21] VITALS: Ht 157.5 cm; Wt 40.0 kg
[2023-10-21] VITALS (153 sets, daily range): BP systolic 135; BP diastolic 72; PULSE 95; TEMP 98.2; O2SAT 94–100
[~2023-10-21 17:11] MED LIST changes: +Doxycycline Hyclate 100 MG in NS 150 ML IV SCH
[2023-10-21] MEDS ORDERED: methylPREDNISolone Sod Succ 125 MG/2 ML VIAL IV ONE (17:30)
[2023-10-21] MEDS ORDERED: Albuterol/Ipratropium 3 MG-0.5 MG/3 ML Neb Soln IH ONE ×2 (17:30→17:45)
[2023-10-21] MEDS ORDERED: NS 1,000 ML IV ONE (17:30)
[2023-10-21] MEDS ORDERED: Albuterol 0.083% Neb Soln 2.5 MG/3 ML UD IH ONE (17:45)
[2023-10-21] MEDS ORDERED: Acetaminophen 500 MG TAB PO ONE (17:45)
[2023-10-21 17:48] LABS: BASO # 0.1 K/mm3 (0.0-0.2); BASO % 0.7 % (0.0-2.0); EOS # 0.7 K/mm3 (0.0-0.7); EOS % 6.7 % (0.0-4.0); GRAN # 6.6 K/mm3 (1.4-6.5); GRAN % 66.8 % (42.2-75.2); HEMATOCRIT 42.9 % (42.0-52.0); HEMOGLOBIN 14.2 g/dl (13.5-18.0); LYMPH # 1.7 K/mm3 (1.2-3.4); MEAN CELL VOLUME 100 fl (80.0-100.0); MEAN CORPUSCULAR HEMOGLOBIN 33 pg (27-31); MEAN CORPUSCULAR HGB CONC 33 g/dl (33.0-37.0); MONO # 0.9 K/mm3 (0.1-0.6); MONO % 8.7 % (1.7-9.3); PLATELET COUNT 339 K/mm3 (130-400); RED BLOOD COUNT 4.28 M/mm3 (4.20-5.60)
[2023-10-21 18:10] LABS: ALANINE AMINOTRANSFERASE 22 U/L (0-55); ALBUMIN 3.3 g/dL (3.4-4.8); ALKALINE PHOSPHATASE 82 U/L (40-150); ANION GAP 11 mmol/L (7-16); AST,SGOT 27 U/L (5-34); BILIRUBIN,TOTAL 0.3 mg/dL (0.2-1.2); BLOOD UREA NITROGEN 17 mg/dL (8-26); C-REACTIVE PROTEIN 1.46 mg/dL (0.00-0.50); CALCIUM 10.1 mg/dL (8.4-10.2); CHLORIDE 105 mEq/L (98-107); CREATININE, serum 0.82 mg/dL (0.72-1.25); GLUCOSE 123 mg/dL (70-99); POTASSIUM 4.5 mEq/L (3.5-4.5); SODIUM 142 mEq/L (136-145); TOTAL PROTEIN 8.2 g/dl (6.2-8.1)
[2023-10-21 18:21] LABS: TROPONIN-I < 0.010 ng/mL (0.00-0.033)
[2023-10-21] MEDS ORDERED: Doxycycline Hyclate 100 MG in NS 150 ML IV ONE (18:30)
[2023-10-21] MEDS ORDERED: Albuterol/Ipratropium 3 MG-0.5 MG/3 ML Neb Soln IH PRN (18:45)
[2023-10-21] MEDS ORDERED: Doxycycline Hyclate 100 MG in NS 150 ML IV SCH (19:00)
[2023-10-21] MEDS ORDERED: Budesonide Neb Susp 0.5 MG/2 ML AMP IH SCH (19:00)
[2023-10-21] MEDS ORDERED: Formoterol Neb Soln 20 MCG/2 ML UD IH SCH (19:00)
[2023-10-21] MEDS ORDERED: Acetaminophen 325 MG TAB PO PRN (19:00)
[2023-10-21 19:06] LABS: ARTERIAL BLD GAS TCO2 CT 25.5; ARTERIAL BLOOD GAS BASE EXCESS 0.2 (-2-2); ARTERIAL BLOOD GAS HCO3 24.3 meq/L (22-26); ARTERIAL BLOOD GAS PO2 112.1 mmHg (80-100); ARTERIAL BLOOD GAS pH 7.42 (7.35-7.45)
[2023-10-21] MEDS ORDERED: Albuterol/Ipratropium 3 MG-0.5 MG/3 ML Neb Soln IH SCH (20:00)
[2023-10-21] MEDS ORDERED: methylPREDNISolone Sod Succ 125 MG/2 ML VIAL IV SCH (20:00)
--- NOTE | 2023-10-21 20:38 | NUR ---
PT ARRIVED TO ICU BED 8 AT 2009 FROM ER. CONNECTED TO MONITORING, AND ARRIVED ON 3L NC. RT AT BEDSIDE BROUGHT DOWN TO 2L O2 VIA NC PER RECENT BLOOD GAS RESULTS. PT RIGHT AWAY ASKED FOR A DRINK AND SNACK, TURNED ON TV. ABLE TO COMMUNICATE CLEARLY WITHOUT ANY DISTRESS. REPORTS BREATHING BETTER THAN BEFORE. WHEEZING STILL AUDIBLE TO ALL LUNG JARRETT BOTH INSPIRATORY AND EXPIRATORY. RT ADMINISTERED BREATHING TREATMENT AT THIS TIME PER SCHEDULED ORDER. PT USED URINAL AT BEDSIDE WITHOUT DIFFICULTY. HAS NO QUESTIONS OR CONCERNS AT THIS TIME. RESP RATE IN MID 20'S, PULSE OXIMETRY 96-100%. PT HAS ALL BELONGINGS INCLUDING GLASSES, DENTURES IN PLACE, WATCH, BRACELET, NECKLACE, CLOTHING AND SHOES, AND PERSONAL CELL PHONE. DISCUSSED POC, STATES UNDERSTANDING.
[2023-10-21] MEDS ORDERED: Gabapentin 100 MG CAP PO SCH (21:00)
[2023-10-21] MEDS ORDERED: dexAMETHasone 10 MG/ML VIAL IV SCH (21:00)
[2023-10-22] VITALS (1279 sets, daily range): BP systolic 100–131; BP diastolic 69–90; PULSE 84–94; TEMP 97.8–98.5; O2SAT 83–100
--- NOTE | 2023-10-22 07:00 | NUR ---
REPORT RECEIVED FROM RICHARD MOFFETT. PT RESTING IN BED, VSS ON 2L O2 PER NC. PER DENIES PAIN OR SHORTNESS OF BREATH. PT IS SITTING UP IN BED EATING BREAKFAST. CALL LIGHT IN REACH.
[2023-10-22] MEDS ORDERED: Doxycycline Hyclate 100 MG in NS 150 ML IV SCH (08:00)
--- NOTE | 2023-10-22 11:02 | NUR ---
SW met with patient to complete intake/discharge planning. Patient provides he lives alone in [facility]. Patient states his next of kin is brother Mitul Cordova [phone] or [phone], DPOA/HC is sister Stephanie Otero [phone]. Patient provides he is independent with ADL's, does not utilize DME nor home health services at this time. Patient provides he does utilize O2 at home. PCP is Dr. Haley, and pharmacy is [facility]. Patient provides he plans to go back to his home in [place] upon discharge. SW will continue to follow. Discharge plan: home
--- NOTE | 2023-10-22 19:51 | NUR ---
PT RESTING IN BED. RESPIRATIONS EVEN AND UNLABORED. NO SIGN OF DISTRESS AT THIS TIME. PT INSTRUCTED ON PROPER I/S USE. USE ENCOURAGED. CONTINUE PLAN OF CARE.
[2023-10-23] VITALS (561 sets, daily range): BP systolic 109–127; BP diastolic 69–83; PULSE 82–92; TEMP 97.7–98.5; O2SAT 58–100
[2023-10-23 06:06] LABS: MEAN CELL VOLUME 98 fl (80.0-100.0); MEAN CORPUSCULAR HGB CONC 34 g/dl (33.0-37.0); PLATELET COUNT 267 K/mm3 (130-400); RED BLOOD COUNT 3.58 M/mm3 (4.20-5.60); REDCELL DISTRIBUTION WIDTH-CV 12.7 % (11.5-14.5)
[2023-10-23 06:16] LABS: HEMOGLOBIN 11.8 g/dl (13.5-18.0); MEAN CORPUSCULAR HEMOGLOBIN 33 pg (27-31)
[2023-10-23 06:23] LABS: CALCIUM 8.6 mg/dL (8.4-10.2); CREATININE, serum 0.79 mg/dL (0.72-1.25); MAGNESIUM 1.9 mg/dL (1.6-2.6)
[2023-10-23 06:29] LABS: BAND 10 % (0-10); LYMPHOCYTE 7 % (20.0-51.0); NEUTROPHILS 83 % (42.0-75.2); PLATELET ESTIMATE NORMAL (NORMAL)
--- NOTE | 2023-10-23 07:00 | NUR ---
Report received from RICHARD Recinos; patient currently resting in bed with no meds or fluids running through his peripheral INT. Patient is on 2L oxygen via NC; no other lines or tubes are in place at this time. Patient's vital signs are within normal limits this morning.
[2023-10-23] MEDS ORDERED: predniSONE 20 MG TAB PO SCH (09:33)
--- NOTE | 2023-10-23 11:08 | NUR ---
Patient to transfer to the floor today. PT recommending home for patient.
--- NOTE | 2023-10-23 13:10 | NUR ---
Reported off to RICHARD Call; patient taken upstairs to medical floor room 353 in a wheelchair by this nurse. Patient sent up with all belongings; patient's vital signs within normal limits upon transfer.
--- NOTE | 2023-10-23 13:24 | NUR ---
1300 PT ARRIVED FROM ICU 8 TO 353. PT AMBULATED FROM WHEELCHAIR TO RECLINER INDEPENDENTLY. PT IS RA. PT DENIES SOB OR CHEST PAIN. PT IS NOT ON TELE. PT IS AXOX4. PT HAS LUNCH. PT ORIENTED TO ROOM AND FLOOR. PT GIVEN CALL LIGHT AND INSTRUCTED TO CALL WITH ALL NEEDS.
--- NOTE | 2023-10-23 15:31 | NUR ---
GAVE PATIENT PRN TX ATT. BS COARSE THROUGHOUT, SPO2 94% ON RA, GAB WEL VIA MK TX.
--- NOTE | 2023-10-23 20:30 | NUR ---
UPON SHIFT ASSESSMENT MELINDA WAS AWAKE IN BED AND AXO X4. LUNG SOUNDS AUSCULTATED EXP WHEEZES IN ALL LOBES. RT BEDSIDE ADMINISTERING DUONEBS. CLAVICLE RETRACTIONS NOTED PRIOR TO DUONEB. PATIENT DENIES CHEST PAIN. C/O OF IV PAIN. IV SITE INFILTERATED. NEW 22G LT FA IV PLACED BY COM WRITER ROD. PATIENT STATES NO OTHER NEEDS AT THIS TIME.
[2023-10-24 00:20] VITALS: BP 139/83; PULSE 92; TEMP 98
[2023-10-24 01:17] VITALS: BP_SYST 139
[2023-10-24 03:32] VITALS: BP 108/64; PULSE 81; TEMP 98.4
--- NOTE | 2023-10-24 03:45 | NUR ---
PATIENT SLEEPING ON LT SIDE. EXP WHEEZES NOTED. CURRENT VS ARE WNL.
[2023-10-24 05:00] VITALS: BP_SYST 108
--- NOTE | 2023-10-24 07:33 | NUR ---
Bedside report received from RICHARD Dumont. Pt awake in bed with no complaints. Call light within reach.
[2023-10-24 07:54] VITALS: BP 106/75; PULSE 86; TEMP 98.1
--- NOTE | 2023-10-24 08:05 | NUR ---
Did not do excercise oximetry order from admittance. Will wait for order for discharge.
[2023-10-24] MEDS ORDERED: DOXYCYCLINE 10100 MG PO (08:30)
[2023-10-24] MEDS ORDERED: predniSONE 20 MG TAB PO SCH (09:00)
[2023-10-24] MEDS ORDERED: Doxycycline Monohydrate 100 MG CAP PO SCH (09:00)
[2023-10-24 10:30] VITALS: BP_SYST 106
--- NOTE | 2023-10-24 11:57 | NUR ---
Discharge instructions provided to pt and pt verbalized understanding of discharge paperwork. INT to Lt forearm discontinued with tip intact, pt tolerated well with no complaints. Pt is leaving facility by himself due to him driving himself to hospital back to home.
--- NOTE | 2023-10-24 12:35 | NUR ---
personal service workers attended interdisciplinary clinical rounding with Dr. Cruz. Patient is medically ready for discharge. SW met with patient and reviewed the important message from Medicare. Patient understood, no questions or concerns. Patient signed the form, SW made copy, placed original in chart and provided copy to patient. SW discussed home health with patient. Patient is open to home health, bilingual social worker provided the Medicare.gov list of options. Patient chose [facility]. MARK sent referral and discharge orders to [facility]. Discharge plan: Home with [facility]
--- NOTE | 2023-10-24 13:08 | NUR ---
settlement worker called [facility] to follow up on home health referral. Tg at [facility] stated they should be able to accept patient but they would need to run his insurance. MARK was notified the discharge orders did not state home health. MARK requested orders be added for home health. MARK faxed updated orders to [facility]. Discharge plan: Home with [facility] HH
== END 2023-10-24 11:59 | disposition home health service (06) | DRG 189 ==
LOC: COL.ER 17:11 → ICU 18:52 → MEDICAL 10-23 13:15
PROVIDERS: Emergency Medicine; Internal Medicine Pulmonary Disease; ADMIT Internal Medicine
DX: J96.21 Acute and chronic respiratory failure with hypoxia (principal); J45.51 Severe persistent asthma with (acute) exacerbation; E46 Unspecified protein-calorie malnutrition; J44.1 Chronic obstructive pulmonary disease with (acute) exacerbation; R65.10 Systemic inflammatory response syndrome (SIRS) of non-infectious origin without acute organ dysfunction; Z68.1 Body mass index [BMI] 19.9 or less, adult; Z20.822 Contact with and (suspected) exposure to COVID-19; E78.5 Hyperlipidemia, unspecified; M19.90 Unspecified osteoarthritis, unspecified site; D72.19 Other eosinophilia; M81.0 Age-related osteoporosis without current pathological fracture; Z79.899 Other long term (current) drug therapy; Z87.820 Personal history of traumatic brain injury; Z99.81 Dependence on supplemental oxygen; Z87.891 Personal history of nicotine dependence; Z88.8 Allergy status to other drugs, medicaments and biological substances; Z23 Encounter for immunization
CPT/HCPCS: A9284; J2919; J7030; J7512